=== PATIENT | female | born 1955 | race Caucasian/White ===

== ENCOUNTER 2021-05-09 01:48 | Inpatient (IN) | payer BC ==
[2021-05-09] MEDS ORDERED: Acetaminophen 325 MG Tab PO ONE ×2 (02:20→05:24)
--- NOTE | 2021-05-09 02:20 | EDM.PDOC ---
ED HPI GENERAL MEDICAL PROBLEM - General Chief Complaint: Abdominal Pain Stated Complaint: STOMACH PAIN Time Seen by Provider: 05/09/21 02:00 Source of Information: Reports: Patient History Limitations: Reports: No Limitations - History of Present Illness INITIAL COMMENTS - FREE TEXT/NARRATIVE: Patient is a 65-year-old female with a history of polycystic kidney disease presents today for left lower quadrant pain. Patient says the pain started about 2 hours ago and woke up out of sleep is been constant in nature nonradiating not made worse or better with anything. She denies any associated symptoms of diarrhea urinary in frequency nausea vomiting. So the feeling is achy feeling. Abdomen Pain Score (Numeric/FACES): 9 - Related Data Allergies Allergy/AdvReac Type Severity Reaction Status Date / Time hydrocodone Allergy Vomiting Verified 05/09/21 02:07 ibuprofen [From Advil] Allergy Other Verified 05/09/21 02:07 Home Meds: Home Meds Albuterol Sulfate [Albuterol Sulfate HFA] 8.5 gm INH ASDIRECTED PRN 05/09/21 [History] Fluticasone Propionate [Flovent HFA 110 MCG] 1 inh INH DAILY 05/09/21 [History] Losartan [Cozaar] 25 mg PO DAILY 05/09/21 [History] Montelukast [Singulair] 10 mg PO DAILY 05/09/21 [History] Past Medical History HEENT History: Reports: None Cardiovascular History: Reports: None Respiratory History: Reports: Asthma Gastrointestinal History: Reports: PUD Other Gastrointestinal History: diverticulitis Genitourinary History: Reports: Other (See Below) Other Genitourinary History: polycystic kidney and liver ASSIST[employer] DIRECTOR History: Reports: None Musculoskeletal History: Reports: None Neurological History: Reports: None Psychiatric History: Reports: None Endocrine/Metabolic History: Reports: None Insulin Pump Model and Blind Hooker: N/A Hematologic History: Reports: None Immunologic History: Reports: None Oncologic (Cancer) History: Reports: None Dermatologic History: Reports: None - Infectious Disease History Infectious Disease History: Reports: None - Past Surgical History Head Surgeries/Procedures: Reports: None Female Surgical History: Reports: Tubal Ligation Musculoskeletal Surgical History: Reports: Other (See Below) Other Musculoskeletal Surgeries/Procedures:: carpal tunnel. R hand trigger thumb Social & Family History - Caffeine Use Caffeine Use: Reports: None - Recreational Drug Use Recreational Drug Use: No ED ROS GENERAL - Review of Systems Review Of Systems: See Below Constitutional: Reports: No Symptoms HEENT: Reports: No Symptoms Respiratory: Reports: No Symptoms Cardiovascular: Reports: No Symptoms Endocrine: Reports: No Symptoms GI/Abdominal: Reports: Abdominal Pain : Reports: No Symptoms Musculoskeletal: Reports: No Symptoms Skin: Reports: No Symptoms Neurological: Reports: No Symptoms Psychiatric: Reports: No Symptoms Hematologic/Lymphatic: Reports: No Symptoms Immunologic: Reports: No Symptoms ED EXAM, GI/ABD - Physical Exam Exam: See Below Exam Limited By: No Limitations General Appearance: Alert, WD/WN, No Apparent Distress Nose: Normal Inspection Throat/Mouth: Normal Inspection Head: Atraumatic, Normocephalic Respiratory/Chest: No Respiratory Distress, Lungs Clear, Normal Breath Sounds Cardiovascular: Normal Peripheral Pulses, Regular Rate, Rhythm GI/Abdominal Exam: Normal Bowel Sounds, Soft, Tender (Left lower quadrant) Back Exam: Normal Inspection Extremities: Normal Inspection, Normal Range of Motion Neurological: Alert, Oriented, CN II-XII Intact, Normal Cognition, Normal Gait #1 Interpretation EKG Date: 05/09/21 Time: 05:43 Rhythm: Other (sinus tachy) Rate (Beats/Min): 101 ST-T: Normal Course - Vital Signs Last Recorded V/S: Last Vital Signs Temp 101.5 F H 05/09/21 05:05 Pulse 97 05/09/21 05:05 Resp 18 05/09/21 05:05 BP 95/51 L 05/09/21 05:05 Pulse Ox 96 05/09/21 05:05 - Orders/Labs/Meds Orders: Active Orders 24 hr Category Date Time Status Patient Status [ADT] Routine ADT 05/09/21 05:07 Active EKG 12 Lead [EKG Documentation Completion] [RC] STAT Care 05/09/21 05:34 Active Chest 1V Frontal [CR] Stat Exams 05/09/21 05:29 Taken CORONAVIRUS COVID-19 ED [MOLEC] Stat Lab 05/09/21 05:05 Ordered CULTURE BLOOD [BC] Stat Lab 05/09/21 05:21 Received CULTURE BLOOD [BC] Stat Lab 05/09/21 05:30 Received LACTIC ACID SEPSIS W/ REFLEX [LACTATE SEPSIS W/ REFLEX] Lab 05/09/21 05:21 Received [CHEM] Stat Sodium Chloride 0.9% [Normal Saline] 1,000 ml Med 05/09/21 05:17 Active IV NOW Blood Culture x2 Reflex Set [OM.PC] Stat Oth 05/09/21 05:04 Ordered Medication Orders Sodium Chloride (Normal Saline) 1,000 mls @ 999 mls/hr IV NOW STA Stop: 05/09/21 06:17 Last Admin: 05/09/21 05:28 Dose: 999 mls/hr Documented by: ELIAZAR Labs: Laboratory Tests 05/09/21 05/09/21 05/09/21 Range/Units 02:00 02:00 02:50 WBC 8.10 (4.0-11.0) K/uL RBC 3.95 L (4.30-5.90) M/uL Hgb 12.8 (12.0-16.0) g/dL Hct 36.7 (36.0-46.0) % MCV 92.9 (80.0-98.0) fL MCH 32.4 H (27.0-32.0) pg MCHC 34.9 (31.0-37.0) g/dL RDW Std Deviation 44.2 (28.0-62.0) fl RDW Coeff of Lucio 13 (11.0-15.0) % Plt Count 231 (150-400) K/uL MPV 9.90 (7.40-12.00) fL Neut % (Auto) 70.7 (48.0-80.0) % Lymph % (Auto) 19.4 (16.0-40.0) % [place] % (Auto) 8.0 (0.0-15.0) % Eos % (Auto) 1.5 (0.0-7.0) % Baso % (Auto) 0.4 (0.0-1.5) % Neut # (Auto) 5.7 (1.4-5.7) K/uL Lymph # (Auto) 1.6 (0.6-2.4) K/uL [place] # (Auto) 0.7 (0.0-0.8) K/uL Eos # (Auto) 0.1 (0.0-0.7) K/uL Baso # (Auto) 0.0 (0.0-0.1) K/uL Nucleated RBC % 0.0 /100WBC Nucleated RBCs # 0 K/uL Sodium 142 (136-145) mmol/L Potassium 4.0 (3.5-5.1) mmol/L Chloride 104 (98-107) mmol/L Carbon Dioxide 25.5 (21.0-32.0) mmol/L BUN 17 (7.0-18.0) mg/dL Creatinine 1.2 H (0.6-1.0) mg/dL Est Cr Clr Drug Dosing 36.21 mL/min Estimated GFR (MDRD) 45.4 ml/min Glucose 99 (74-106) mg/dL Lactic Acid (0.4-2.0) mmol/L Calcium 8.2 L (8.5-10.1) mg/dL Phosphorus 3.7 (2.6-4.7) mg/dL Magnesium 1.9 (1.8-2.4) mg/dL Total Bilirubin 0.4 (0.2-1.0) mg/dL AST 22 (15-37) IU/L ALT 25 (14-63) IU/L Alkaline Phosphatase 97 (46-116) U/L Total Protein 6.8 (6.4-8.2) g/dL Albumin 3.7 (3.4-5.0) g/dL Globulin 3.1 (2.6-4.0) g/dL Albumin/Globulin Ratio 1.2 (0.9-1.6) Lipase 105 (73-393) U/L Urine Color YELLOW Urine Appearance CLEAR Urine pH 6.5 (5.0-8.0) Ur Specific [place] <= 1.005 (1.001-1.035) Urine Protein NEGATIVE (NEGATIVE) mg/dL Urine Glucose (UA) NEGATIVE (NEGATIVE) mg/dL Urine Ketones NEGATIVE (NEGATIVE) mg/dL Urine Occult Blood NEGATIVE (NEGATIVE) Urine Nitrite NEGATIVE (NEGATIVE) Urine Bilirubin NEGATIVE (NEGATIVE) Urine Urobilinogen 0.2 (<2.0) EU/dL Ur Leukocyte Esterase NEGATIVE (NEGATIVE) 05/09/21 Range/Units 03:23 WBC (4.0-11.0) K/uL RBC (4.30-5.90) M/uL Hgb (12.0-16.0) g/dL Hct (36.0-46.0) % MCV (80.0-98.0) fL MCH (27.0-32.0) pg MCHC (31.0-37.0) g/dL RDW Std Deviation (28.0-62.0) fl RDW Coeff of Lucio (11.0-15.0) % Plt Count (150-400) K/uL MPV (7.40-12.00) fL Neut % (Auto) (48.0-80.0) % Lymph % (Auto) (16.0-40.0) % [place] % (Auto) (0.0-15.0) % Eos % (Auto) (0.0-7.0) % Baso % (Auto) (0.0-1.5) % Neut # (Auto) (1.4-5.7) K/uL Lymph # (Auto) (0.6-2.4) K/uL [place] # (Auto) (0.0-0.8) K/uL Eos # (Auto) (0.0-0.7) K/uL Baso # (Auto) (0.0-0.1) K/uL Nucleated RBC % /100WBC Nucleated RBCs # K/uL Sodium (136-145) mmol/L Potassium (3.5-5.1) mmol/L Chloride (98-107) mmol/L Carbon Dioxide (21.0-32.0) mmol/L BUN (7.0-18.0) mg/dL Creatinine (0.6-1.0) mg/dL Est Cr Clr Drug Dosing mL/min Estimated GFR (MDRD) ml/min Glucose (74-106) mg/dL Lactic Acid 1.3 (0.4-2.0) mmol/L Calcium (8.5-10.1) mg/dL Phosphorus (2.6-4.7) mg/dL Magnesium (1.8-2.4) mg/dL Total Bilirubin (0.2-1.0) mg/dL AST (15-37) IU/L ALT (14-63) IU/L Alkaline Phosphatase (46-116) U/L Total Protein (6.4-8.2) g/dL Albumin (3.4-5.0) g/dL Globulin (2.6-4.0) g/dL Albumin/Globulin Ratio (0.9-1.6) Lipase (73-393) U/L Urine Color Urine Appearance Urine pH (5.0-8.0) Ur Specific [place] (1.001-1.035) Urine Protein (NEGATIVE) mg/dL Urine Glucose (UA) (NEGATIVE) mg/dL Urine Ketones (NEGATIVE) mg/dL Urine Occult Blood (NEGATIVE) Urine Nitrite (NEGATIVE) Urine Bilirubin (NEGATIVE) Urine Urobilinogen (<2.0) EU/dL Ur Leukocyte Esterase (NEGATIVE) Meds: Medications Generic Name Dose Route Start Last Admin Trade Name Freq PRN Reason Stop Dose Admin Sodium Chloride 1,000 mls @ 999 mls/hr 05/09/21 05:17 05/09/21 05:28 Normal Saline IV 05/09/21 06:17 999 mls/hr NOW STA Administration Discontinued Medications Generic Name Dose Route Start Last Admin Trade Name Freq PRN Reason Stop Dose Admin Acetaminophen 650 mg 05/09/21 02:20 05/09/21 02:30 Acetaminophen 325 Mg Tab PO 05/09/21 02:21 650 mg NOW ONE Administration Acetaminophen 325 mg 05/09/21 05:20 05/09/21 05:25 Acetaminophen 325 Mg/10.15 Ml Ml PO 05/09/21 05:21 Not Given NOW ONE Acetaminophen 325 mg 05/09/21 05:24 05/09/21 05:30 Acetaminophen 325 Mg Tab PO 05/09/21 05:25 Not Given NOW ONE Sodium Chloride 1,000 mls @ 999 mls/hr 05/09/21 02:51 05/09/21 02:58 Normal Saline IV 05/09/21 03:51 999 mls/hr NOW STA Administration Piperacillin Sod/Tazobactam 50 mls @ 100 mls/hr 05/09/21 04:43 05/09/21 04:59 Sod 3.375 gm/ Sodium Chloride IV 05/09/21 05:12 100 mls/hr ONETIME ONE Administration Iopamidol 80 ml 05/09/21 03:21 05/09/21 03:21 Iopamidol 755 Mg/Ml 500 Ml Multipack Bottle IVPUSH 05/09/21 03:22 80 ml ONETIME STA Administration Ketorolac Tromethamine 30 mg 05/09/21 05:29 05/09/21 05:43 Ketorolac 30 Mg/Ml Sdv IVPUSH 05/09/21 05:30 30 mg ONETIME ONE Administration Ondansetron HCl 4 mg 05/09/21 02:54 05/09/21 02:58 Ondansetron 4 Mg/2 Ml Sdv IVPUSH 05/09/21 02:55 4 mg ONETIME ONE Administration Ondansetron HCl Confirm 05/09/21 02:55 05/09/21 02:58 Ondansetron 4 Mg/2 Ml Sdv Administered 05/09/21 02:56 Not Given Dose 4 mg .ROUTE .[facility] ONE - Re-Assessments/Exams Free Text/Narrative Re-Assessment/Exam: 05/09/21 04:[address] scan shows diverticulitis will start antibiotics likely admit. 05/09/21 05:08 Patient also slightly hypotensive but not tacky we will obtain blood cultures and lactate as well. Departure - Departure Time of Disposition: 04:45 Disposition: Refer to Observation Condition: Good Clinical Impression: Acute diverticulitis - Discharge Information *PRESCRIPTION DRUG MONITORING PROGRAM REVIEWED*: Not Applicable *COPY OF PRESCRIPTION DRUG MONITORING REPORT IN PATIENT UMAIR: Not Applicable Sepsis Event Note (ED) - Evaluation Sepsis Screening Result: No Definite Risk - Focused Exam Vital Signs: Vital Signs Temp Temp Pulse Resp BP Pulse Ox 05/09/21 05:05 101.5 F H 97 18 95/51 L 96 05/09/21 02:55 97.8 F 100/57 L 05/09/21 02:05 97 F 82 18 132/85 97 - My Orders Last 24 Hours: My Active Orders 05/09/21 05:04 Blood Culture x2 Reflex Set [OM.PC] Stat 05/09/21 05:05 CORONAVIRUS COVID-19 ED [MOLEC] Stat 05/09/21 05:07 Patient Status [ADT] Routine 05/09/21 05:17 Sodium Chloride 0.9% [Normal Saline] 1,000 ml IV NOW 05/09/21 05:21 CULTURE BLOOD [BC] Stat LACTIC ACID SEPSIS W/ REFLEX [LACTATE SEPSIS W/ REFLEX] [CHEM] Stat 05/09/21 05:29 Chest 1V Frontal [CR] Stat 05/09/21 05:30 CULTURE BLOOD [BC] Stat 05/09/21 05:34 EKG 12 Lead [EKG Documentation Completion] [RC] STAT - Assessment/Plan Last 24 Hours: My Active Orders 05/09/21 05:04 Blood Culture x2 Reflex Set [OM.PC] Stat 05/09/21 05:05 CORONAVIRUS COVID-19 ED [MOLEC] Stat 05/09/21 05:07 Patient Status [ADT] Routine 05/09/21 05:17 Sodium Chloride 0.9% [Normal Saline] 1,000 ml IV NOW 05/09/21 05:21 CULTURE BLOOD [BC] Stat LACTIC ACID SEPSIS W/ REFLEX [LACTATE SEPSIS W/ REFLEX] [CHEM] Stat 05/09/21 05:29 Chest 1V Frontal [CR] Stat 05/09/21 05:30 CULTURE BLOOD [BC] Stat 05/09/21 05:34 EKG 12 Lead [EKG Documentation Completion] [RC] STAT Plan: Patient is a 65-year-old female presents today for left lower quadrant pain. Patient has some tenderness on exam. Will obtain labs CT scan provide pain control and reassess.
[2021-05-09 02:50] LABS: CARBON DIOXIDE,CO2 25.5 mmol/L (21.0-32.0)
[2021-05-09] MEDS ORDERED: Sodium Chloride 0.9% 1,000 ML IV STA ×2 (02:51→05:17)
[2021-05-09] MEDS ORDERED: Ondansetron 4 MG/2 ML SDV IVPUSH ONE (02:54)
[2021-05-09] MEDS ORDERED: Ondansetron 4 MG/2 ML SDV ONE (02:55)
[2021-05-09] MEDS ORDERED: Iopamidol 755 MG/ML 500 ML Multipack Bottle IVPUSH STA (03:21)
--- NOTE | 2021-05-09 04:41 | CT ---
Indication: Left lower quadrant pain Technique: Contrast enhanced axial CT imaging through the abdomen and pelvis. 80 mL Isovue 370 contrast agent was administered intravenously. Sagittal and coronal reconstructions are provided. Comparison: None Findings: Extensive diverticulosis of the descending and sigmoid colon. Circumferential wall thickening of the proximal sigmoid colon with surrounding edema, consistent with acute diverticulitis. No extraluminal air to suggest perforation. No evidence of pericolonic abscess. Noninflamed appendix. Normal caliber of the small bowel. Small hiatal hernia. Otherwise unremarkable stomach. Innumerable bilateral renal cortical cysts of varying size, largest on the left measuring up to 7.5 cm, consistent with polycystic kidney disease. Multiple cysts also noted in the liver, measuring up to 6 cm in the posterior right hepatic lobe. Unremarkable gallbladder, spleen, pancreas common adrenal glands. Patent portal vein, hepatic veins, IVC, and renal veins. Normal caliber abdominal aorta. No lymphadenopathy appreciated in the abdomen or pelvis. Degenerative disc disease at the lumbosacral junction. Otherwise unremarkable osseous structures. No significant opacity involving the clinical basis. Impression: 1. Acute diverticulitis of the sigmoid colon. No evidence of colonic perforation or pericolonic abscess. 2. Polycystic kidney disease. 3. Small hiatal hernia. Please note that all CT scans at this facility use dose modulation, iterative reconstruction, and/or weight-based dosing when appropriate to reduce radiation dose to as low as reasonably achievable. Dictated by Akua Chambers MD @ 05/09/2021 4:40:01 AM (Electronically Signed)
[2021-05-09] MEDS ORDERED: Piperacillin/Tazobactam 3.375 GM in Sodium Chloride 0.9% 50 ML IV ONE (04:43)
[2021-05-09] MEDS ORDERED: Acetaminophen 325 MG/10.15 ML ML PO ONE (05:20)
[2021-05-09] MEDS ORDERED: Ketorolac 30 MG/ML SDV IVPUSH ONE (05:29)
--- NOTE | 2021-05-09 05:59 | CR ---
INDICATION: Diverticulitis TECHNIQUE: Portable upright AP view of the chest COMPARISON: None FINDINGS: The lungs are clear. There is no sizable pleural effusion or pneumothorax. The cardiomediastinal silhouette is normal. The visualized osseous structures are unremarkable. There is no free air under the diaphragm. IMPRESSION: No acute intrathoracic process. Dictated by Akua Chambers MD @ 05/09/2021 5:58:06 AM (Electronically Signed)
[2021-05-09] MEDS ORDERED: Sodium Chloride 0.9% 1,000 ML IV SCH (07:00)
--- NOTE | 2021-05-09 08:12 | PCM.SN.2 ---
- Free Text/Narrative Note: Patient was signed out to me by Dr. Mcmullen at 7 AM pending admit after Covid swab. I promptly performed a detailed physical examination and my examination was done after ED treatments were initiated by the signout provider. Patient has been under the care of previous provider up until this point. On reevaluation at the time of signout the patient's blood pressure was with a MAP less than 65. My prior colleague had placed a 1 L bolus order we will reevaluate after this bolus as the patient has already received 2 L prior to this. After additional liter the patient's blood pressure did remain low therefore we did repeat labs including CBC, CMP, INR, lactic acid and providing additional 1 L lactated Ringer's bolus to equal 30 cc/kg bolus as the patient is meeting septic shock criteria. At the time of my evaluation the patient skin is warm, dry and capillary refill was less than 2 seconds. Patient has already received antibiotics. We will reevaluate blood pressure after the additional 1 L of lactated Ringer's bolus which equates to 30 cc/kg's to evaluate need for possible central line placement and vasopressor support. Laboratory: Anemia with a hemoglobin of 10.8 hematocrit of 31.3 likely dilution al secondary to fluid administration. White blood cell count did increase from 8.1-10.6 with neutrophilic predominance without any obvious left shift. INR is normal. CMP is unchanged from prior. Lactic acid is 1.6 which is up from prior however not greater than 2. On reevaluation the patient's blood pressure continued to remain above a map of 65. Therefore at this time no vasopressor support is indicated. Patient has received an equivalent of 30 cc/kg bolus. We will continue with current management. The patient was started on maintenance fluids. Post bolus examination reveals skin that is warm and dry and capillary refill less than 2 seconds. DISPOSITION: Patient was admitted to the hospital in stable CONDITION: Serious PROCEDURES: Cardiac monitoring interpretation, pulse oximetry interpretation FINAL IMPRESSION(S)/DIAGNOSES: 1. Acute abdominal pain secondary to diverticulitis 2. Acute sepsis secondary to diverticulitis Critical Care Procedure Note Authorized and performed by: Forrest Persaud M.D. Critical Care Time: 60 minutes Due to a high probability of clinically significant, life threatening deterioration, the patient required my highest level of preparedness to intervene emergently and I personally spent this critical care time directly and personally managing the patient. This critical care time included obtaining a history, examining the patient, pulse oximetry; ordering and review of studies; arranging urgent treatment with development of a management plan; evaluation of a patients reponse to treatment; frequent assessment; and discussions with other providers. This critical care time was performed to assess and manage the high probability of imminent, life threatening deterioration that could result in multiorgan failure. It was exclusive of separate billable procedures and treating other patients. Please see MDM section and rest of the note for further information on patient assessment and treatment. Please see MDM section and rest of the note for further information on patient assessment and treatment. Forrest Perasud M.D. Time Documentation
[2021-05-09] MEDS ORDERED: Lactated Ringers 1,000 ML IV SCH (08:15)
[2021-05-09 09:03] LABS: CARBON DIOXIDE,CO2 21.5 mmol/L (21.0-32.0); POTASSIUM,K 3.5 mmol/L (3.5-5.1)
[2021-05-09] MEDS ORDERED: Acetaminophen 325 MG Tab PO PRN (10:00)
[2021-05-09] MEDS ORDERED: Albuterol/Ipratropium 3.0-0.5 MG/3 ML Neb Soln NEB PRN (10:00)
[2021-05-09] MEDS ORDERED: Hydrocortisone Sodium Succinate 100 MG/2 ML SDV IVPUSH ONE (10:08)
--- NOTE | 2021-05-09 10:14 | PCM.HP.2 ---
H&P History of Present Illness - General Date of Service: 05/09/21 Admit Problem/Dx: Admission Diagnosis/Problem Admission Diagnosis/Problem Diverticulitis - History of Present Illness Initial Comments - Free Text/Narative: The patient is a 65-year-old female, on day one of service, who has a significant past medical history of polycystic kidney disease, asthma, and hypertension, who was admitted to the medical floor for diverticulitis. The patient upon interview today states that for the past 2 months she has had on and off abdominal pain in the left lower quadrant which became worse in the past 24 hours; it currently is 10 out of 10 in intensity, sharp in nature, and radiates to the right lower quadrant. She has not had any diarrhea, melena, bloody stools, vomiting, but does admit to feeling nauseous. The patient is postmenopausal, has allergies to hydrocodone, and social history is nonc ontributory. With respect to her family history, her father also had polycystic kidney disease, and her mother suffers from asthma and hypertension. Upon further interview, she denies chest pain, back pain, or issues with urination. On CBC, her white blood cell count is 10.16, hemoglobin is 10.8, hematocrit is 31.3, and platelet count is 182 On CMP, sodium is 142, potassium is 3.5, chloride is 107, carbon dioxide is 21.5, BUN is 12, creatinine is 1.2 Urinalysis showed no abnormalities, and COVID-19 test was negative Chest x-ray showed no acute intrathoracic abnormalities CT of the abdomen showed acute diverticulitis of the sigmoid colon, no abscesses or perforations, evidence of polycystic kidney disease, and a small hiatal hernia In the emergency department, the patient was given Toradol 30 mg for pain as well as three doses of Tylenol, 325 mg per oral route twice and 650 mg per oral route once, patient was also given three normal saline boluses, two lactated ringer boluses, was given Zofran 4 mg once, had two blood cultures done, and was started on Zosyn 3.375 mg per IV route once. Abdomen Pain Score (Numeric/FACES): 9 - Related Data Allergies/Adverse Reactions: Allergies Allergy/AdvReac Type Severity Reaction Status Date / Time hydrocodone Allergy Vomiting Verified 05/09/21 02:07 ibuprofen [From Advil] Allergy Other Verified 05/09/21 02:07 Home Medications: Home Meds Albuterol Sulfate [Albuterol Sulfate HFA] 8.5 gm INH ASDIRECTED PRN 05/09/21 [History] Fluticasone/Vilanterol [Breo Ellipta 200-25 MCG Inhalation Kit] 1 inh IH DAILY 05/09/21 [History] Losartan [Cozaar] 25 mg PO DAILY 05/09/21 [History] Montelukast [Singulair] 10 mg PO DAILY 05/09/21 [History] Past Medical History HEENT History: Reports: None Cardiovascular History: Reports: None Respiratory History: Reports: Asthma Gastrointestinal History: Reports: PUD Other Gastrointestinal History: Diverticulitis Genitourinary History: Reports: Other (See Below) Other Genitourinary History: polycystic kidney and liver MEDICAL LEADER History: Reports: None Musculoskeletal History: Reports: None Neurological History: Reports: None Psychiatric History: Reports: None Endocrine/Metabolic History: Reports: None Insulin Pump Model and Machine Filler Servicer: N/A Hematologic History: Reports: None Immunologic History: Reports: None Oncologic (Cancer) History: Reports: None Dermatologic History: Reports: None - Infectious Disease History Infectious Disease History: Reports: None - Past Surgical History Head Surgeries/Procedures: Reports: None Female Surgical History: Reports: Tubal Ligation Musculoskeletal Surgical History: Reports: Other (See Below) Other Musculoskeletal Surgeries/Procedures:: carpal tunnel. R hand trigger thumb Social & Family History - Caffeine Use Caffeine Use: Reports: None - Recreational Drug Use Recreational Drug Use: No H&P Review of Systems - Review of Systems: Review Of Systems: See Below General: Reports: Chills, Fatigue. Denies: Fever HEENT: Denies: Headaches Pulmonary: Reports: Shortness of Breath. Denies: Cough Cardiovascular: Denies: Chest Pain, Palpitations, Dyspnea on Exertion Gastrointestinal: Reports: Abdominal Pain. Denies: Bloody Stool, Constipation, Diarrhea Genitourinary: Denies: Dysuria Exam - Exam Exam: See Below - Vital Signs Vital Signs: Last Vital Signs Temp 101.5 F H 05/09/21 05:05 Pulse 98 05/09/21 09:51 Resp 18 05/09/21 09:51 BP 88/53 L 05/09/21 09:51 Pulse Ox 93 L 05/09/21 09:51 Weight: 140 lb - Exam General: Alert, Oriented, Cooperative HEENT: Other (Dry mucous membranes) Neck: No: Lymphadenopathy Lungs: Clear to Auscultation, Normal Respiratory Effort Cardiovascular: Regular Rate, Regular Rhythm GI/Abdominal Exam: Normal Bowel Sounds, Tender - Patient Data Lab Results Last 24 hrs: Laboratory Results - last 24 hr 05/09/21 05/09/21 05/09/21 Range/Units 02:00 02:00 02:50 WBC 8.10 (4.0-11.0) K/uL RBC 3.95 L (4.30-5.90) M/uL Hgb 12.8 (12.0-16.0) g/dL Hct 36.7 (36.0-46.0) % MCV 92.9 (80.0-98.0) fL MCH 32.4 H (27.0-32.0) pg MCHC 34.9 (31.0-37.0) g/dL RDW Std Deviation 44.2 (28.0-62.0) fl RDW Coeff of Lucio 13 (11.0-15.0) % Plt Count 231 (150-400) K/uL MPV 9.90 (7.40-12.00) fL Neut % (Auto) 70.7 (48.0-80.0) % Lymph % (Auto) 19.4 (16.0-40.0) % Citrus % (Auto) 8.0 (0.0-15.0) % Eos % (Auto) 1.5 (0.0-7.0) % Baso % (Auto) 0.4 (0.0-1.5) % Neut # (Auto) 5.7 (1.4-5.7) K/uL Lymph # (Auto) 1.6 (0.6-2.4) K/uL Citrus # (Auto) 0.7 (0.0-0.8) K/uL Eos # (Auto) 0.1 (0.0-0.7) K/uL Baso # (Auto) 0.0 (0.0-0.1) K/uL Nucleated RBC % 0.0 /100WBC Nucleated RBCs # 0 K/uL INR Sodium 142 (136-145) mmol/L Potassium 4.0 (3.5-5.1) mmol/L Chloride 104 (98-107) mmol/L Carbon Dioxide 25.5 (21.0-32.0) mmol/L BUN 17 (7.0-18.0) mg/dL Creatinine 1.2 H (0.6-1.0) mg/dL Est Cr Clr Drug Dosing 36.21 mL/min Estimated GFR (MDRD) 45.4 ml/min Glucose 99 (74-106) mg/dL Lactic Acid (0.4-2.0) mmol/L Calcium 8.2 L (8.5-10.1) mg/dL Phosphorus 3.7 (2.6-4.7) mg/dL Magnesium 1.9 (1.8-2.4) mg/dL Total Bilirubin 0.4 (0.2-1.0) mg/dL AST 22 (15-37) IU/L ALT 25 (14-63) IU/L Alkaline Phosphatase 97 (46-116) U/L Total Protein 6.8 (6.4-8.2) g/dL Albumin 3.7 (3.4-5.0) g/dL Globulin 3.1 (2.6-4.0) g/dL Albumin/Globulin Ratio 1.2 (0.9-1.6) Lipase 105 (73-393) U/L Urine Color YELLOW Urine Appearance CLEAR Urine pH 6.5 (5.0-8.0) Ur Specific [place] <= 1.005 (1.001-1.035) Urine Protein NEGATIVE (NEGATIVE) mg/dL Urine Glucose (UA) NEGATIVE (NEGATIVE) mg/dL Urine Ketones NEGATIVE (NEGATIVE) mg/dL Urine Occult Blood NEGATIVE (NEGATIVE) Urine Nitrite NEGATIVE (NEGATIVE) Urine Bilirubin NEGATIVE (NEGATIVE) Urine Urobilinogen 0.2 (<2.0) EU/dL Ur Leukocyte Esterase NEGATIVE (NEGATIVE) SARS-CoV-2 RNA (ED) (NEGATIVE) 05/09/21 05/09/21 05/09/21 Range/Units 03:23 04:55 05:21 WBC (4.0-11.0) K/uL RBC (4.30-5.90) M/uL Hgb (12.0-16.0) g/dL Hct (36.0-46.0) % MCV (80.0-98.0) fL MCH (27.0-32.0) pg MCHC (31.0-37.0) g/dL RDW Std Deviation (28.0-62.0) fl RDW Coeff of Lucio (11.0-15.0) % Plt Count (150-400) K/uL MPV (7.40-12.00) fL Neut % (Auto) (48.0-80.0) % Lymph % (Auto) (16.0-40.0) % Citrus % (Auto) (0.0-15.0) % Eos % (Auto) (0.0-7.0) % Baso % (Auto) (0.0-1.5) % Neut # (Auto) (1.4-5.7) K/uL Lymph # (Auto) (0.6-2.4) K/uL Citrus # (Auto) (0.0-0.8) K/uL Eos # (Auto) (0.0-0.7) K/uL Baso # (Auto) (0.0-0.1) K/uL Nucleated RBC % /100WBC Nucleated RBCs # K/uL INR Sodium (136-145) mmol/L Potassium (3.5-5.1) mmol/L Chloride (98-107) mmol/L Carbon Dioxide (21.0-32.0) mmol/L BUN (7.0-18.0) mg/dL Creatinine (0.6-1.0) mg/dL Est Cr Clr Drug Dosing mL/min Estimated GFR (MDRD) ml/min Glucose (74-106) mg/dL Lactic Acid 1.3 0.8 (0.4-2.0) mmol/L Calcium (8.5-10.1) mg/dL Phosphorus (2.6-4.7) mg/dL Magnesium (1.8-2.4) mg/dL Total Bilirubin (0.2-1.0) mg/dL AST (15-37) IU/L ALT (14-63) IU/L Alkaline Phosphatase (46-116) U/L Total Protein (6.4-8.2) g/dL Albumin (3.4-5.0) g/dL Globulin (2.6-4.0) g/dL Albumin/Globulin Ratio (0.9-1.6) Lipase (73-393) U/L Urine Color Urine Appearance Urine pH (5.0-8.0) Ur Specific [place] (1.001-1.035) Urine Protein (NEGATIVE) mg/dL Urine Glucose (UA) (NEGATIVE) mg/dL Urine Ketones (NEGATIVE) mg/dL Urine Occult Blood (NEGATIVE) Urine Nitrite (NEGATIVE) Urine Bilirubin (NEGATIVE) Urine Urobilinogen (<2.0) EU/dL Ur Leukocyte Esterase (NEGATIVE) SARS-CoV-2 RNA (ED) NEGATIVE (NEGATIVE) 05/09/21 05/09/21 05/09/21 Range/Units 08:20 08:20 08:20 WBC 10.16 (4.0-11.0) K/uL RBC 3.34 L (4.30-5.90) M/uL Hgb 10.8 L (12.0-16.0) g/dL Hct 31.3 L (36.0-46.0) % MCV 93.7 (80.0-98.0) fL MCH 32.3 H (27.0-32.0) pg MCHC 34.5 (31.0-37.0) g/dL RDW Std Deviation 45.3 (28.0-62.0) fl RDW Coeff of Lucio 13 (11.0-15.0) % Plt Count 182 (150-400) K/uL MPV 9.80 (7.40-12.00) fL Neut % (Auto) 89.6 H (48.0-80.0) % Lymph % (Auto) 4.3 L (16.0-40.0) % Citrus % (Auto) 6.0 (0.0-15.0) % Eos % (Auto) 0.0 (0.0-7.0) % Baso % (Auto) 0.1 (0.0-1.5) % Neut # (Auto) 9.1 H (1.4-5.7) K/uL Lymph # (Auto) 0.4 L (0.6-2.4) K/uL Citrus # (Auto) 0.6 (0.0-0.8) K/uL Eos # (Auto) 0.0 (0.0-0.7) K/uL Baso # (Auto) 0.0 (0.0-0.1) K/uL Nucleated RBC % 0.0 /100WBC Nucleated RBCs # 0 K/uL INR 1.06 Sodium (136-145) mmol/L Potassium (3.5-5.1) mmol/L Chloride (98-107) mmol/L Carbon Dioxide (21.0-32.0) mmol/L BUN (7.0-18.0) mg/dL Creatinine (0.6-1.0) mg/dL Est Cr Clr Drug Dosing mL/min Estimated GFR (MDRD) ml/min Glucose (74-106) mg/dL Lactic Acid 1.6 (0.4-2.0) mmol/L Calcium (8.5-10.1) mg/dL Phosphorus (2.6-4.7) mg/dL Magnesium (1.8-2.4) mg/dL Total Bilirubin (0.2-1.0) mg/dL AST (15-37) IU/L ALT (14-63) IU/L Alkaline Phosphatase (46-116) U/L Total Protein (6.4-8.2) g/dL Albumin (3.4-5.0) g/dL Globulin (2.6-4.0) g/dL Albumin/Globulin Ratio (0.9-1.6) Lipase (73-393) U/L Urine Color Urine Appearance Urine pH (5.0-8.0) Ur Specific [place] (1.001-1.035) Urine Protein (NEGATIVE) mg/dL Urine Glucose (UA) (NEGATIVE) mg/dL Urine Ketones (NEGATIVE) mg/dL Urine Occult Blood (NEGATIVE) Urine Nitrite (NEGATIVE) Urine Bilirubin (NEGATIVE) Urine Urobilinogen (<2.0) EU/dL Ur Leukocyte Esterase (NEGATIVE) SARS-CoV-2 RNA (ED) (NEGATIVE) 05/09/21 Range/Units 08:20 WBC (4.0-11.0) K/uL RBC (4.30-5.90) M/uL Hgb (12.0-16.0) g/dL Hct (36.0-46.0) % MCV (80.0-98.0) fL MCH (27.0-32.0) pg MCHC (31.0-37.0) g/dL RDW Std Deviation (28.0-62.0) fl RDW Coeff of Lucio (11.0-15.0) % Plt Count (150-400) K/uL MPV (7.40-12.00) fL Neut % (Auto) (48.0-80.0) % Lymph % (Auto) (16.0-40.0) % Citrus % (Auto) (0.0-15.0) % Eos % (Auto) (0.0-7.0) % Baso % (Auto) (0.0-1.5) % Neut # (Auto) (1.4-5.7) K/uL Lymph # (Auto) (0.6-2.4) K/uL Citrus # (Auto) (0.0-0.8) K/uL Eos # (Auto) (0.0-0.7) K/uL Baso # (Auto) (0.0-0.1) K/uL Nucleated RBC % /100WBC Nucleated RBCs # K/uL INR Sodium 142 (136-145) mmol/L Potassium 3.5 (3.5-5.1) mmol/L Chloride 107 (98-107) mmol/L Carbon Dioxide 21.5 (21.0-32.0) mmol/L BUN 12 (7.0-18.0) mg/dL Creatinine 1.2 H (0.6-1.0) mg/dL Est Cr Clr Drug Dosing 36.21 mL/min Estimated GFR (MDRD) 45.4 ml/min Glucose 98 (74-106) mg/dL Lactic Acid (0.4-2.0) mmol/L Calcium 6.8 L (8.5-10.1) mg/dL Phosphorus (2.6-4.7) mg/dL Magnesium (1.8-2.4) mg/dL Total Bilirubin 0.6 (0.2-1.0) mg/dL AST 23 (15-37) IU/L ALT 24 (14-63) IU/L Alkaline Phosphatase 74 (46-116) U/L Total Protein 5.3 L (6.4-8.2) g/dL Albumin 2.9 L (3.4-5.0) g/dL Globulin 2.4 L (2.6-4.0) g/dL Albumin/Globulin Ratio 1.2 (0.9-1.6) Lipase (73-393) U/L Urine Color Urine Appearance Urine pH (5.0-8.0) Ur Specific [place] (1.001-1.035) Urine Protein (NEGATIVE) mg/dL Urine Glucose (UA) (NEGATIVE) mg/dL Urine Ketones (NEGATIVE) mg/dL Urine Occult Blood (NEGATIVE) Urine Nitrite (NEGATIVE) Urine Bilirubin (NEGATIVE) Urine Urobilinogen (<2.0) EU/dL Ur Leukocyte Esterase (NEGATIVE) SARS-CoV-2 RNA (ED) (NEGATIVE) Result Diagrams: 05/09/21 08:20 05/09/21 08:20 Sepsis Event Note - Evaluation Sepsis Screening Result: No Definite Risk - Focused Exam Vital Signs: Vital Signs Temp Temp Pulse Resp BP BP Pulse Ox 05/09/21 09:51 98 18 88/53 L 93 L 05/09/21 09:16 98 18 94/57 L 94 L 05/09/21 08:49 95 17 95/59 L 95 05/09/21 08:06 96 17 91/49 L 96 05/09/21 08:01 18 91/52 L 05/09/21 07:48 98 16 81/56 L 96 05/09/21 07:17 103 H 18 84/48 L 96 05/09/21 06:30 102 H 18 101/52 L 95 05/09/21 05:05 101.5 F H 97 18 95/51 L 96 05/09/21 02:55 97.8 F 100/57 L 05/09/21 02:05 97 F 82 18 132/85 97 - Problem List (1) HTN (hypertension) SNOMED Code(s): 82271408 ICD Code: I10 - ESSENTIAL (PRIMARY) HYPERTENSION Status: Acute Current Vi sit: Yes (2) Asthma SNOMED Code(s): 802729403 ICD Code: J45.909 - UNSPECIFIED ASTHMA, UNCOMPLICATED Status: Acute Current Visit: Yes (3) PKD (polycystic kidney disease) SNOMED Code(s): 552621450 ICD Code: Q61.3 - POLYCYSTIC KIDNEY, UNSPECIFIED Status: Acute Current Visit: Yes (4) Acute diverticulitis SNOMED Code(s): 909217664 ICD Code: K57.92 - DVTRCLI OF INTEST, PART UNSP, W/O PERF OR ABSCESS W/O BLEED Status: Acute Current Visit: Yes Problem List Initiated/Reviewed/Updated: Yes Orders Last 24hrs: Active Orders 24 hr Category Date Time Status Patient Status [ADT] Routine ADT 05/09/21 05:07 Active RT Aerosol Therapy [RC] ASDIRECTED Care 05/09/21 10:04 Active Clear Liquid Diet [DIET] Diet 05/09/21 Lunch Active CBC WITH AUTO DIFF [HEME] AM Lab 05/10/21 05:11 Ordered CBC WITH AUTO DIFF [HEME] AM Lab 05/11/21 05:11 Ordered CBC WITH AUTO DIFF [HEME] AM Lab 05/12/21 05:11 Ordered CBC WITH AUTO DIFF [HEME] AM Lab 05/13/21 05:11 Ordered CMP [COMPREHENSIVE METABOLIC PN,CMP] [CHEM] AM Lab 05/10/21 05:11 Ordered CMP [COMPREHENSIVE METABOLIC PN,CMP] [CHEM] AM Lab 05/11/21 05:11 Ordered CMP [COMPREHENSIVE METABOLIC PN,CMP] [CHEM] AM Lab 05/12/21 05:11 Ordered CMP [COMPREHENSIVE METABOLIC PN,CMP] [CHEM] AM Lab 05/13/21 05:11 Ordered CULTURE BLOOD [BC] Stat Lab 05/09/21 05:21 Received CULTURE BLOOD [BC] Stat Lab 05/09/21 05:30 Received PTT,PARTIAL THROMBOPLSTIN TIME [COAG] Q6H Lab 05/09/21 10:00 Ordered PTT,PARTIAL THROMBOPLSTIN TIME [COAG] Q6H Lab 05/09/21 16:00 Ordered PTT,PARTIAL THROMBOPLSTIN TIME [COAG] Q6H Lab 05/09/21 22:00 Ordered PTT,PARTIAL THROMBOPLSTIN TIME [COAG] Q6H Lab 05/10/21 04:00 Ordered PTT,PARTIAL THROMBOPLSTIN TIME [COAG] Q6H Lab 05/10/21 10:00 Ordered PTT,PARTIAL THROMBOPLSTIN TIME [COAG] Q6H Lab 05/10/21 16:00 Ordered PTT,PARTIAL THROMBOPLSTIN TIME [COAG] Q6H Lab 05/10/21 22:00 Ordered PTT,PARTIAL THROMBOPLSTIN TIME [COAG] Stat Lab 05/09/21 09:59 Ordered Acetaminophen [TylenoL] Med 05/09/21 10:00 Active 650 mg PO Q6H PRN Albuterol/Ipratropium [DuoNeb 3.0-0.5 MG/3 ML] Med 05/09/21 10:03 Ordered 3 ml NEB Q4HRRT PRN Heparin Sodium Med 05/09/21 10:00 Active 5,000 units SUBCUT Q12H Lactated Ringers [Ringers, Lactated] 1,000 ml Med 05/09/21 08:15 Active IV ASDIRECTED Lactated Ringers [Ringers, Lactated] 1,000 ml Med 05/09/21 08:15 Active IV ASDIRECTED Losartan Med 05/09/21 10:15 Ordered 25 mg PO DAILY Ondansetron [Zofran] Med 05/09/21 10:00 Active 4 mg IVPUSH Q4H PRN Pantoprazole [ProTONIX] Med 05/09/21 10:00 Active 40 mg PO DAILY Piperacillin/Tazobactam [Piperacil-Tazobact] 3.375 gm Med 05/09/21 12:00 Active Sodium Chloride 0.9% [Normal Saline] 50 ml IV Q6H Sodium Chloride 0.9% [Normal Saline] 1,000 ml Med 05/09/21 07:00 Active IV ASDIRECTED Blood Culture x2 Reflex Set [OM.PC] Stat Oth 05/09/21 05:04 Ordered Code Status [Resuscitation Status] Routine Resus Stat 05/09/21 10:05 Ordered Medication Orders Acetaminophen (Acetaminophen 325 Mg Tab) 650 mg PO Q6H PRN PRN Reason: Pain Albuterol/Ipratropium (Albuterol/Ipratropium 3.0-0.5 Mg/3 Ml Neb Soln) 3 ml NEB Q4HRRT PRN PRN Reason: Shortness of Breath Heparin Sodium (Porcine) (Heparin Sodium 5,000 Units/Ml Vial) 5,000 units SUBCUT Q12H MARIAJOSE Sodium Chloride (Normal Saline) 1,000 mls @ 150 mls/hr IV ASDIRECTED MARIAJOSE Last Infusion: 05/09/21 07:01 Dose: 999 mls/hr Documented by: Admin: 05/09/21 07:01 Dose: 150 mls/hr Documented by: ELIAZAR Lactated Ringer's (Ringers, Lactated) 1,000 mls @ 999 mls/hr IV ASDIRECTED MARIAJOSE Last Admin: 05/09/21 08:28 Dose: 999 mls/hr Documented by: [email or web address] Lactated Ringer's (Ringers, Lactated) 1,000 mls @ 125 mls/hr IV ASDIRECTED MARIAJOSE Piperacillin Sod/Tazobactam (Sod 3.375 gm/ Sodium Chloride) 50 mls @ 100 mls/hr IV Q6H [facility] Non-Formulary Medication (Losartan) 25 mg PO DAILY [facility] Ondansetron HCl (Ondansetron 4 Mg/2 Ml Sdv) 4 mg IVPUSH Q4H PRN PRN Reason: Nausea Pantoprazole Sodium (Pantoprazole 40 Mg Tab.Cr) 40 mg PO DAILY [facility] Assessment/Plan Comment:: Admit the patient to the medical floor, full code, vitals per unit routine, activity up ad david., pantoprazole 40 mg per oral route for GI prophylaxis, heparin 5000 every 12 hours for DVT prophylaxis, clear liquid diet 1. Diverticulitis of the sigmoid colon -Patient was started on Zofran 3.375 g in the ED once, we will continue with this dosage every 6 hours starting at 12 noon -For pain associated with this condition, the patient has Tylenol 650 mg per oral route in place as needed -Continue to monitor patient white blood cell status through daily CBC's -Zofran is on board for any nausea 2. ELENA most likely secondary to polycystic kidney disease -Patient's creatinine is increased, she received five 1 L boluses of liquids altogether, two LR and three NS -We will continue to monitor kidney function through daily CMP's 3. Asthma -Duo nebs are on board for shortness of breath 4. Hypertension -Losartan is on board for high blood pressure
[2021-05-09] MEDS ORDERED: Losartan 50 MG Tab PO SCH (10:15)
[2021-05-09] MEDS: Lactated Ringers 1,000 ML IV SCH ×2 (10:28→18:32)
[2021-05-09] MEDS ORDERED: Morphine 4 MG/ML Syringe IVPUSH ONE (10:53)
[2021-05-09] MEDS: Pantoprazole 40 MG Tab.CR PO SCH (11:10)
[2021-05-09] MEDS: Heparin Sodium 5,000 Units/ML Vial SUBCUT SCH ×2 (11:10→22:04)
[2021-05-09] MEDS: Ondansetron 4 MG/2 ML SDV IVPUSH PRN ×2 (11:23→22:13)
--- NOTE | 2021-05-09 11:50 | PCM.SN.2 ---
- Free Text/Narrative Note: As the patient was being prepped for transport to the floor the patient's blood pressure dropped additionally again. At this time given the patient has received the equivalent of 30 cc/kg bolus I did have a discussion with the patient about placement of a central line to initiate vasopressor support. Written consent was obtained and placed into the chart. Constitutional: Blood pressure was 92/48, heart rate 101, respiratory rate 18 with an oxygen saturation of 98% on room air General: Village woman who appears to be in a moderate amount of pain Psychiatric: [Appropriate mood and affect.] Eyes: [No scleral icterus or conjunctival erythema] ENMT: [Moist mucous membranes. No pharyngeal erythema] Cardiovascular: Tachycardic but regular [No gallops, murmurs, or rubs.] Bilateral upper extremity pulses symmetric and intact. No peripheral edema. No JVD. Capillary refill less than 2 seconds Respiratory: [Lungs clear to auscultation bilaterally.][No wheezes, rales, or rhonchi.] Gastrointestinal: Soft, tenderness to palpation in the left lower quadrant. Negative Mercado's and McBurney's. No rebound or guarding. No peritoneal signs. [Normoactive bowel sounds] Genitourinary: [No suprapubic tenderness] Musculoskeletal: [Normal range of motion.] Skin: [No lesions or abrasions.] Warm, pink skin Neurological: [Alert, GCS 15] Central Line Procedure The risks and benefits of the procedure were explained. Consent was obtained and placed in chart. The indication for central line placement was vasopressor support. The patient was monitored during the entire procedure. Time out was performed. The patient's left neck was prepped and draped in a sterile fashion. Lidocaine was used to anesthetize the area. A needle was entered into the left internal jugular vein [under ultrasound guidance] with return of non-pulsatile flow. Guidewire was placed and triple lumen catheter was placed via Seldinger technique. Guidewire was removed. All 3 lines easily withdrew blood and were flushed with sterile saline. A Biopatch was placed and the line was secured. Patient tolerated procedure well. No complications. The radiological images were viewed by myself along with reading the report from the radiologist. Post central line placement chest x-ray reveals appropriate placement of central line. After placement we did put the place patient on Levophed to maintain a MAP greater than 65. At this time we do not have any available ICU beds at our institution. We will provide the patient with 100 of hydrocortisone for possibility of adrenal insufficiency given sepsis. Therefore I did contact [facility] in [place] there was no available beds. Given the Covid pandemic I did contact the transfer center for [place] and there are no available beds in [place] however they will attempt to contact to see if there is any available beds that we will be opening today. We will continue to attempt to find placement for this patient. She was made aware of this plan. There were no beds available at [facility] in [place], [facility], [facility] in [place]. We did speak with [facility] who would speak with her surgeon to see if they were available to admit the patient and to see if they had beds. While awaiting for a call back from [facility] we were informed by our staff that we did have an open ICU bed that became available here at [facility]. Therefore the patient will be admitted to our hospital. This was discussed with the patient. On reevaluation the patient's map continue to remain stable. DISPOSITION: Patient was admitted to the hospital in stable CONDITION: Critical PROCEDURES: Left internal jugular central venous catheter placement FINAL IMPRESSION(S)/DIAGNOSES: 1. Acute abdominal pain secondary to diverticulitis 2. Acute septic shock secondary to #1 Critical Care Procedure Note Authorized and performed by: Forrest Persaud M.D. Critical Care Time: 74 minutes Due to a high probability of clinically significant, life threatening deterioration, the patient required my highest level of preparedness to intervene emergently and I personally spent this critical care time directly and personally managing the patient. This critical care time included obtaining a history, examining the patient, pulse oximetry; ordering and review of studies; arranging urgent treatment with development of a management plan; evaluation of a patients reponse to treatment; frequent assessment; and discussions with other providers. This critical care time was performed to assess and manage the high probability of imminent, life threatening deterioration that could result in multiorgan failure. It was exclusive of separate billable procedures and treating other patients. Please see MDM section and rest of the note for further information on patient assessment and treatment. Please see MDM section and rest of the note for further information on patient assessment and treatment. Time Documentation
--- NOTE | 2021-05-09 12:04 | CR ---
INDICATION: Post central line placement. TECHNIQUE: Upright portable AP image of the chest. COMPARISON: Portable chest x-ray from 12/23 8 a.m. today. FINDINGS: Interval placement of left jugular central line with tip in the SVC. Otherwise unremarkable and unchanged. IMPRESSION: Interval placement of central line in the SVC. Dictated by Robinson Mata MD @ 05/09/2021 12:03:05 PM (Electronically Signed)
[2021-05-09] MEDS: Piperacillin/Tazobactam 3.375 GM in Sodium Chloride 0.9% 50 ML IV SCH ×3 (13:45→23:07)
[2021-05-09] MEDS ORDERED: Morphine 2 MG/ML SYRINGE IVPUSH ONE (14:50)
[2021-05-09] MEDS: Morphine 2 MG/ML SYRINGE IVPUSH PRN ×3 (18:26→22:40)
--- NOTE | 2021-05-09 19:00 | PN ---
THC Physician - Brief Progress KhycBUTKOVYKM24/14/2021 18:59[facility] Frandy Haas, [place] - MWN (BETTEN) - MWN ICUAL[facility]ENTERBREANN CYNTHIA JAISON Jones.Date of Service 05/09/2021 18:59HPI/Mari nts of Note eICU Admission [id number] admitted for septic shock attributed to diverticulitis. History ob tained from review of EMR.Camera exam: Laying in bed. Vitals monitor reviewed. eICU Recommendations:N orepinephrine is a reasonable choice for vasopressor supportContinue antibiotics, blood cultures orde red by primary serviceIV fluids to target euvolemia, lactate normalGiven acute worsening, consider re peat CT abd/pelvis. Defer this to bedside abdominal examinationSurgical consultation if availableTran sfer to higher level of care if bed availableeICU will continue to follow and assist as desired.DVT a nd GI prophylaxis as appropriate.Thank you for allowing us to participate in the care of this patient .Unless otherwise specified, defer implementation of above recommendations to discretion of bedside arlen healy. Please do not hesitate to contact the eICU service for questions, clarification, or assistan ce with implementation.The above note transcribed with the assistance of dictation software. Please e xcuse any errors.Interventions Major-Sepsis - evaluation and management, Shock - evaluation and manag ement
[2021-05-09] MEDS: Acetaminophen 1,000 MG in Premix Bag 1 BAG IV PRN (22:13)
--- NOTE | 2021-05-09 23:12 | CONS ---
DATE OF CONSULTATION: 05/09/2021 DATE OF : 1955 PRIMARY CARE PHYSICIAN: None PCP HISTORY OF PRESENT ILLNESS: Patient is a pleasant 65-year-old female who says she woke up this morning with increased left lower abdominal pain. She said it was 10/10. She came to the ER for evaluation. She had a CT scan that did show some extensive diverticulosis in descending and sigmoid colon with circumferential wall thickening of the proximal sigmoid colon with some surrounding edema. No signs of perforation or abscess. She also has multiple cysts in her kidney and liver, and she has a small hiatal hernia. During her course in the ER, it looks like she was found to be hypotensive. Central line was placed and she was started on pressors. They started to try to transfer her, however, there were no beds available in [place], so she was admitted here. She did receive some steroids for her hypotension. Her white cell count 7.16, hemoglobin of 10.8, platelet count 182. Lactic acid 1.6. She was admitted to the Hospitalist Service and started on IV antibiotics. General Surgery was consulted late this evening. Patient relates that she has had a history for the past 2 months of having left lower abdominal pain. She says she has gone multiple times to her clinic in [place] where she lives for this. She says she has been given antibiotics and the pain will kind of go away, but then come back. She says 2 weeks ago, she had a very severe pain like this. She could barely walk. Again, they gave her outpatient medicines, which seem to help until last night. Patient denies any fevers or chills. Patient denies any changes in her bowel habits other than over the last couple of weeks has been a little more painful to have a bowel movement, and she feels like it is more difficult to have a bowel movement, even though her stools are not hard. Patient is in town to go to her niece's . Throughout the day, patient has been weaned off her pressors and is now not on any. She reports that her abdominal pain just maybe marginally better, but still she says it is quite tender. She describes the pain as a sharp left lower quadrant pain, although it does sort of go across her lower abdomen. PAST MEDICAL HISTORY: Significant for: 1. Hypertension. 2. Polycystic kidney disease. 3. Asthma. CURRENT HOME MEDICATIONS: 1. Breo Ellipta 200/25 mcg inhaler daily. 2. Singulair 10 mg p.o. daily. 3. Cozaar 25 mg p.o. daily. 4. Albuterol inhaler p.r.n. ALLERGIES: Hydrocodone. PAST SURGICAL HISTORY: 1. Knee scope. 2. Tubal ligation. FAMILY HISTORY: Father, brother, and sister all have polycystic kidney disease. SOCIAL HISTORY: Patient denies any tobacco use. Denies any illicit drug use. Denies any alcohol use. She does live in [place], but here for her niece's . LABORATORY DATA: White cell count is 10.16, hemoglobin 10.8, platelet count is 182. Sodium 142, potassium 3.5, chloride 107, bicarb is 25.1, BUN 12, creatinine 1.2, glucose is 98. Lactic acid is 1.6. COVID is negative. IMAGING: As per HPI. I did review the CT scan and the report. PHYSICAL EXAMINATION: GENERAL: Patient is resting comfortably in her room. She is alert and oriented, in no acute distress. VITAL SIGNS: Temperature is 98.7, pulse is 102, blood pressure is 125/78, saturating 98% on room air. HEENT: Head normocephalic, atraumatic. LUNGS: Clear to auscultation bilaterally. No rhonchi or wheezes are heard. HEART: Regular rate and rhythm. No murmur appreciated. ABDOMEN: Soft and nondistended. She is tender in her lower abdomen. She does have guarding in left lower abdomen. EXTREMITIES: No edema. NEUROLOGIC: Grossly no motor or neurologic deficit noted. ASSESSMENT AND PLAN: A pleasant 65-year-old female. It sounds like she has an ongoing diverticulitis for the past 2 months, treated just with outpatient antibiotics, but it does not sound like it has ever completely resolved. Patient was admitted to our hospital. She has been started on antibiotics and given IV hydration. She was having hypotension, but this has since resolved. Patient does not have an elevated white cell count nor lactic acid. I did go over with the patient what diverticulosis was, also went over what diverticulitis was. I went over that we try to treat this first with IV antibiotics to get over the acute infection. After this, she would likely benefit from a colonoscopy to make sure this is diverticulitis and not something else with the wall thickening. At this time, patient might consider maybe elective sigmoid colectomy if she does continue having recurrent diverticulitis, but I went over again that this is usually when the diverticulitis bout has passed. I went over that if she does end up needing to have surgery that often this end up with a colostomy or ileostomy. I did answer all the patient's questions. I also discussed with the Medicine team. Surgery will continue to follow. JESSI ORTIZ /[id number] MTDD
[2021-05-10] MEDS: Morphine 2 MG/ML SYRINGE IVPUSH PRN ×6 (00:41→21:27)
[2021-05-10] MEDS: Lactated Ringers 1,000 ML IV SCH ×3 (02:28→21:37)
[2021-05-10 04:42] LABS: CARBON DIOXIDE,CO2 24.4 mmol/L (21.0-32.0)
[2021-05-10] MEDS: Piperacillin/Tazobactam 3.375 GM in Sodium Chloride 0.9% 50 ML IV SCH ×4 (05:08→23:44)
[2021-05-10] MEDS: Acetaminophen 1,000 MG in Premix Bag 1 BAG IV PRN ×3 (08:59→23:43)
[2021-05-10] MEDS: Pantoprazole 40 MG Tab.CR PO SCH (08:59)
[2021-05-10] MEDS: Heparin Sodium 5,000 Units/ML Vial SUBCUT SCH ×2 (10:38→21:22)
--- NOTE | 2021-05-10 11:33 | PN ---
SUBJECTIVE: The patient was sleeping actually, resting comfortably in the room, I woke her up. The patient says she had an okay night. She says she might be a little bit better than last evening. Still no flatus. Still has pain in the left lower abdomen that is sharp, although pain is not radiating over to the right side as much as it was yesterday. She continues to be off any pressor support. The patient says she has been urinating. She says it was less tender when she got up to go to the bathroom this morning. Again overall, patient says she is feeling slightly better than last night. OBJECTIVE: She is lying comfortably in her bed. She is alert and oriented, in no acute distress. VITALS: Temperature is 97.8, pulse is 93, blood pressure is 92/55. ABDOMEN: Soft and nondistended. She again is tender in her left lower abdomen. Some voluntary guarding. She is a little less tender than last night in the left lower abdomen and quite a bit less tender in the right abdomen on palpation. RECTAL: Exam was done with waste disposal plant operator in the room. Does have some external hemorrhoidal skin tissue to the rectal exam. I do not feel any masses and no blood or stool on withdrawal. ASSESSMENT AND PLAN: The patient is a pleasant 65-year-old female who has had abdominal pain off and on for the last several months. She had been treated for diverticulitis with antibiotics as outpatient. However, while there, had severe pain and came to the ER. She had a CT scan that showed some inflammation and edema of sigmoid colon, but no perforation or abscess formation. She is admitted for IV antibiotics, hydration. The patient has been improving. Her pain is slightly improved. Her white cell count did go up a little bit from 10.16 to 11.48. Although this could also be because she got a dose of steroids yesterday. Again went over with the patient that we will continue IV antibiotics and bowel rest. However, if she does not continue to improve or gets worse, potentially she might still need a surgery such as a sigmoid colectomy. However, she does seem to be improving. Answered all the patient's questions. Did speak with the Medicine team about the patient. The patient will be signed out to Dr. Padilla for the weekend. JESSI / DIANA /[id number] MTDD
[2021-05-10] MEDS: Ondansetron 4 MG/2 ML SDV IVPUSH PRN (12:04)
--- NOTE | 2021-05-10 16:00 | PCM.PN ---
- General Info Date of Service: 05/10/21 Subjective Update: The patient is a 65-year-old female, on day 2 of service, who has a significant past medical history of polycystic kidney disease, asthma, and hypertension, who was admitted to the intensive care unit for hypotension as a secondary diagnosis to her diverticulitis, her primary diagnosis. Her blood pressures have slightly improved with norepinephrine treatment. Upon interview with the patient today she says that her abdominal pain is slightly improved and is 7 out of 10 in intensity when she receives morphine. She was seen by surgeon Dr. Amos Moraes and it was explained to her that she will need to continue IV antibiotics until her condition is improved which will be followed up by a colonoscopy for visualization of her internal large colon. The patient does not want to eat but does explain that when she drinks Gatorade she tolerates it well and it makes her feel better, as a result she has been progressed from n.p.o. to clear liquid diet. The patient and the were seen by myself and Dr. Donovan Moraes today, the management plan was outlined for them moving forward. She has no other concerns at this time. - Review of Systems General: Denies: Fever, Weakness, Fatigue HEENT: Denies: Headaches, Sore Throat Pulmonary: Denies: Shortness of Breath, Cough Cardiovascular: Denies: Chest Pain, Palpitations Gastrointestinal: Reports: Abdominal Pain Genitourinary: Denies: Dysuria, Frequency - Patient Data Vitals - Most Recent: Last Vital Signs Temp 98.2 F 05/10/21 12:00 Pulse 87 05/09/21 15:20 Resp 15 05/10/21 15:00 BP 99/64 05/10/21 15:00 Pulse Ox 95 05/10/21 15:00 Weight - Most Recent: 141 lb 11.2 oz I&O - Last 24 Hours: Intake & Output 05/10/21 05/10/21 05/10/21 06:59 14:59 22:59 Intake Total 100 Output Total 850 Balance -750 Lab Results Last 24 Hours: Laboratory Results - last 24 hr 05/09/21 05/09/21 05/10/21 Range/Units 16:48 22:15 04:14 WBC (4.0-11.0) K/uL RBC (4.30-5.90) M/uL Hgb (12.0-16.0) g/dL Hct (36.0-46.0) % MCV (80.0-98.0) fL MCH (27.0-32.0) pg MCHC (31.0-37.0) g/dL RDW Std Deviation (28.0-62.0) fl RDW Coeff of Lucio (11.0-15.0) % Plt Count (150-400) K/uL MPV (7.40-12.00) fL Neut % (Auto) (48.0-80.0) % Lymph % (Auto) (16.0-40.0) % [place] % (Auto) (0.0-15.0) % Eos % (Auto) (0.0-7.0) % Baso % (Auto) (0.0-1.5) % Neut # (Auto) (1.4-5.7) K/uL Lymph # (Auto) (0.6-2.4) K/uL [place] # (Auto) (0.0-0.8) K/uL Eos # (Auto) (0.0-0.7) K/uL Baso # (Auto) (0.0-0.1) K/uL Nucleated RBC % /100WBC Nucleated RBCs # K/uL APTT 29.6 30.7 33.6 H (18.6-31.3) SEC Sodium (136-145) mmol/L Potassium (3.5-5.1) mmol/L Chloride (98-107) mmol/L Carbon Dioxide (21.0-32.0) mmol/L BUN (7.0-18.0) mg/dL Creatinine (0.6-1.0) mg/dL Est Cr Clr Drug Dosing mL/min Estimated GFR (MDRD) ml/min Glucose (74-106) mg/dL Calcium (8.5-10.1) mg/dL Total Bilirubin (0.2-1.0) mg/dL AST (15-37) IU/L ALT (14-63) IU/L Alkaline Phosphatase (46-116) U/L Total Protein (6.4-8.2) g/dL Albumin (3.4-5.0) g/dL Globulin (2.6-4.0) g/dL Albumin/Globulin Ratio (0.9-1.6) 05/10/21 05/10/21 05/10/21 Range/Units 04:14 04:14 10:10 WBC 11.48 H (4.0-11.0) K/uL RBC 3.19 L (4.30-5.90) M/uL Hgb 10.4 L (12.0-16.0) g/dL Hct 30.0 L (36.0-46.0) % MCV 94.0 (80.0-98.0) fL MCH 32.6 H (27.0-32.0) pg MCHC 34.7 (31.0-37.0) g/dL RDW Std Deviation 47.4 (28.0-62.0) fl RDW Coeff of Lucio 14 (11.0-15.0) % Plt Count 162 (150-400) K/uL MPV 9.70 (7.40-12.00) fL Neut % (Auto) 89.7 H (48.0-80.0) % Lymph % (Auto) 6.8 L (16.0-40.0) % [place] % (Auto) 3.4 (0.0-15.0) % Eos % (Auto) 0.0 (0.0-7.0) % Baso % (Auto) 0.1 (0.0-1.5) % Neut # (Auto) 10.3 H (1.4-5.7) K/uL Lymph # (Auto) 0.8 (0.6-2.4) K/uL [place] # (Auto) 0.4 (0.0-0.8) K/uL Eos # (Auto) 0.0 (0.0-0.7) K/uL Baso # (Auto) 0.0 (0.0-0.1) K/uL Nucleated RBC % 0.0 /100WBC Nucleated RBCs # 0 K/uL APTT 33.6 H (18.6-31.3) SEC Sodium 142 (136-145) mmol/L Potassium 4.0 (3.5-5.1) mmol/L Chloride 106 (98-107) mmol/L Carbon Dioxide 24.4 (21.0-32.0) mmol/L BUN 13 (7.0-18.0) mg/dL Creatinine 1.3 H (0.6-1.0) mg/dL Est Cr Clr Drug Dosing 33.42 mL/min Estimated GFR (MDRD) 41.4 ml/min Glucose 104 (74-106) mg/dL Calcium 7.0 L (8.5-10.1) mg/dL Total Bilirubin 0.8 (0.2-1.0) mg/dL AST 18 (15-37) IU/L ALT 19 (14-63) IU/L Alkaline Phosphatase 59 (46-116) U/L Total Protein 5.0 L (6.4-8.2) g/dL Albumin 2.4 L (3.4-5.0) g/dL Globulin 2.6 (2.6-4.0) g/dL Albumin/Globulin Ratio 0.9 (0.9-1.6) Alex Results Last 24 Hours: Microbiology 05/09/21 05:30 Aerobic Blood Culture - Preliminary Blood - Venous - Lab Draw NO GROWTH AFTER 1 DAY Anaerobic Blood Culture - Preliminary NO GROWTH AFTER 1 DAY 05/09/21 05:21 Aerobic Blood Culture - Preliminary Blood - Venous NO GROWTH AFTER 1 DAY Anaerobic Blood Culture - Preliminary NO GROWTH AFTER 1 DAY Med Orders - Current: Current Medications Acetaminophen (Acetaminophen 325 Mg Tab) 650 mg PO Q6H PRN PRN Reason: Pain Albuterol/Ipratropium (Albuterol/Ipratropium 3.0-0.5 Mg/3 Ml Neb Soln) 3 ml NEB Q4HRRT PRN PRN Reason: Shortness of Breath Heparin Sodium (Porcine) (Heparin Sodium 5,000 Units/Ml Vial) 5,000 units SUBCUT Q12H MARIAJOSE Last Admin: 05/10/21 10:38 Dose: 5,000 units Documented by: Sodium Chloride (Normal Saline) 1,000 mls @ 150 mls/hr IV ASDIRECTED MARIAJOSE Last Infusion: 05/09/21 07:01 Dose: 999 mls/hr Documented by: Lactated Ringer's (Ringers, Lactated) 1,000 mls @ 999 mls/hr IV ASDIRECTED MARIAJOSE Last Admin: 05/09/21 08:28 Dose: 999 mls/hr Documented by: Lactated Ringer's (Ringers, Lactated) 1,000 mls @ 125 mls/hr IV ASDIRECTED MARIAJOSE Last Admin: 05/10/21 10:38 Dose: 125 mls/hr Documented by: Piperacillin Sod/Tazobactam (Sod 3.375 gm/ Sodium Chloride) 50 mls @ 100 mls/hr IV Q6H [facility] Last Admin: 05/10/21 12:04 Dose: 100 mls/hr Documented by: Norepinephrine Bitartrate (Norepinephr-0.9% Nacl 4 Mg/250) 4 mg in 250 mls @ 7.5 mls/hr IV TITRATE [facility]; Protocol Last Titration: 05/09/21 19:35 Dose: 0 mcg/min, 0 mls/hr Documented by: Acetaminophen 1,000 mg/ Premix 100 mls @ 400 mls/hr IV Q6H PRN PRN Reason: Pain Last Admin: 05/10/21 08:59 Dose: 400 mls/hr Documented by: Morphine Sulfate (Morphine 2 Mg/Ml Syringe) 2 mg IVPUSH Q2H PRN PRN Reason: Pain Last Admin: 05/10/21 12:03 Dose: 2 mg Documented by: Ondansetron HCl (Ondansetron 4 Mg/2 Ml Sdv) 4 mg IVPUSH Q4H PRN PRN Reason: Nausea Last Admin: 05/10/21 12:04 Dose: 4 mg Documented by: Pantoprazole Sodium (Pantoprazole 40 Mg Tab.Cr) 40 mg PO DAILY [facility] Last Admin: 05/10/21 08:59 Dose: 40 mg Documented by: Discontinued Medications Acetaminophen (Acetaminophen 325 Mg Tab) 650 mg PO NOW ONE Stop: 05/09/21 02:21 Last Admin: 05/09/21 02:30 Dose: 650 mg Documented by: Acetaminophen (Acetaminophen 325 Mg/10.15 Ml Ml) 325 mg PO NOW ONE Stop: 05/09/21 05:21 Last Admin: 05/09/21 05:25 Dose: Not Given Documented by: Acetaminophen (Acetaminophen 325 Mg Tab) 325 mg PO NOW ONE Stop: 05/09/21 05:25 Last Admin: 05/09/21 05:30 Dose: Not Given Documented by: Hydrocortisone Sodium Succinate (Hydrocortisone Sodium Succinate 100 Mg/2 Ml Sdv) 100 mg IVPUSH ONETIME ONE Stop: 05/09/21 10:09 Last Admin: 05/09/21 11:10 Dose: 100 mg Documented by: Sodium Chloride (Normal Saline) 1,000 mls @ 999 mls/hr IV NOW STA Stop: 05/09/21 03:51 Last Admin: 05/09/21 02:58 Dose: 999 mls/hr Documented by: Piperacillin Sod/Tazobactam (Sod 3.375 gm/ Sodium Chloride) 50 mls @ 100 mls/hr IV ONETIME ONE Stop: 05/09/21 05:12 Last Admin: 05/09/21 04:59 Dose: 100 mls/hr Documented by: Sodium Chloride (Normal Saline) 1,000 mls @ 999 mls/hr IV NOW STA Stop: 05/09/21 06:17 Last Admin: 05/09/21 05:28 Dose: 999 mls/hr Documented by: Iopamidol (Iopamidol 755 Mg/Ml 500 Ml Multipack Bottle) 80 ml IVPUSH ONETIME STA Stop: 05/09/21 03:22 Last Admin: 05/09/21 03:21 Dose: 80 ml Documented by: Ketorolac Tromethamine (Ketorolac 30 Mg/Ml Sdv) 30 mg IVPUSH ONETIME ONE Stop: 05/09/21 05:30 Last Admin: 05/09/21 05:43 Dose: 30 mg Documented by: Losartan Potassium (Losartan 50 Mg Tab) 25 mg PO DAILY MARIAJOSE Last Admin: 05/09/21 13:51 Dose: Not Given Documented by: Morphine Sulfate (Morphine 4 Mg/Ml Syringe) 4 mg IVPUSH ONETIME ONE Stop: 05/09/21 10:54 Last Admin: 05/09/21 11:11 Dose: 4 mg Documented by: Morphine Sulfate (Morphine 2 Mg/Ml Syringe) 2 mg IVPUSH ONETIME ONE Stop: 05/09/21 14:51 Last Admin: 05/09/21 15:16 Dose: 2 mg Documented by: Ondansetron HCl (Ondansetron 4 Mg/2 Ml Sdv) 4 mg IVPUSH ONETIME ONE Stop: 05/09/21 02:55 Last Admin: 05/09/21 02:58 Dose: 4 mg Documented by: Ondansetron HCl (Ondansetron 4 Mg/2 Ml Sdv) Confirm Administered Dose 4 mg .ROUTE .STK-MED ONE Stop: 05/09/21 02:56 Last Admin: 05/09/21 02:58 Dose: Not Given Documented by: - Exam Central Line Total Time: 1Days 2Hours General: Alert, Oriented, Cooperative HEENT: Mucous Membr. Moist/[place] Neck: Trachea Midline Lungs: Clear to Auscultation, Normal Respiratory Effort Cardiovascular: Regular Rate, Regular Rhythm, No Murmurs GI/Abdominal Exam: Tender Extremities: Other (SCDs on bilateral lower extremities) - Patient Data Lab Results Last 24 hrs: Laboratory Results - last 24 hr 05/09/21 05/09/21 05/10/21 Range/Units 16:48 22:15 04:14 WBC (4.0-11.0) K/uL RBC (4.30-5.90) M/uL Hgb (12.0-16.0) g/dL Hct (36.0-46.0) % MCV (80.0-98.0) fL MCH (27.0-32.0) pg MCHC (31.0-37.0) g/dL RDW Std Deviation (28.0-62.0) fl RDW Coeff of Lucio (11.0-15.0) % Plt Count (150-400) K/uL MPV (7.40-12.00) fL Neut % (Auto) (48.0-80.0) % Lymph % (Auto) (16.0-40.0) % [place] % (Auto) (0.0-15.0) % Eos % (Auto) (0.0-7.0) % Baso % (Auto) (0.0-1.5) % Neut # (Auto) (1.4-5.7) K/uL Lymph # (Auto) (0.6-2.4) K/uL [place] # (Auto) (0.0-0.8) K/uL Eos # (Auto) (0.0-0.7) K/uL Baso # (Auto) (0.0-0.1) K/uL Nucleated RBC % /100WBC Nucleated RBCs # K/uL APTT 29.6 30.7 33.6 H (18.6-31.3) SEC Sodium (136-145) mmol/L Potassium (3.5-5.1) mmol/L Chloride (98-107) mmol/L Carbon Dioxide (21.0-32.0) mmol/L BUN (7.0-18.0) mg/dL Creatinine (0.6-1.0) mg/dL Est Cr Clr Drug Dosing mL/min Estimated GFR (MDRD) ml/min Glucose (74-106) mg/dL Calcium (8.5-10.1) mg/dL Total Bilirubin (0.2-1.0) mg/dL AST (15-37) IU/L ALT (14-63) IU/L Alkaline Phosphatase (46-116) U/L Total Protein (6.4-8.2) g/dL Albumin (3.4-5.0) g/dL Globulin (2.6-4.0) g/dL Albumin/Globulin Ratio (0.9-1.6) 05/10/21 05/10/21 05/10/21 Range/Units 04:14 04:14 10:10 WBC 11.48 H (4.0-11.0) K/uL RBC 3.19 L (4.30-5.90) M/uL Hgb 10.4 L (12.0-16.0) g/dL Hct 30.0 L (36.0-46.0) % MCV 94.0 (80.0-98.0) fL MCH 32.6 H (27.0-32.0) pg MCHC 34.7 (31.0-37.0) g/dL RDW Std Deviation 47.4 (28.0-62.0) fl RDW Coeff of Lucio 14 (11.0-15.0) % Plt Count 162 (150-400) K/uL MPV 9.70 (7.40-12.00) fL Neut % (Auto) 89.7 H (48.0-80.0) % Lymph % (Auto) 6.8 L (16.0-40.0) % [place] % (Auto) 3.4 (0.0-15.0) % Eos % (Auto) 0.0 (0.0-7.0) % Baso % (Auto) 0.1 (0.0-1.5) % Neut # (Auto) 10.3 H (1.4-5.7) K/uL Lymph # (Auto) 0.8 (0.6-2.4) K/uL [place] # (Auto) 0.4 (0.0-0.8) K/uL Eos # (Auto) 0.0 (0.0-0.7) K/uL Baso # (Auto) 0.0 (0.0-0.1) K/uL Nucleated RBC % 0.0 /100WBC Nucleated RBCs # 0 K/uL APTT 33.6 H (18.6-31.3) SEC Sodium 142 (136-145) mmol/L Potassium 4.0 (3.5-5.1) mmol/L Chloride 106 (98-107) mmol/L Carbon Dioxide 24.4 (21.0-32.0) mmol/L BUN 13 (7.0-18.0) mg/dL Creatinine 1.3 H (0.6-1.0) mg/dL Est Cr Clr Drug Dosing 33.42 mL/min Estimated GFR (MDRD) 41.4 ml/min Glucose 104 (74-106) mg/dL Calcium 7.0 L (8.5-10.1) mg/dL Total Bilirubin 0.8 (0.2-1.0) mg/dL AST 18 (15-37) IU/L ALT 19 (14-63) IU/L Alkaline Phosphatase 59 (46-116) U/L Total Protein 5.0 L (6.4-8.2) g/dL Albumin 2.4 L (3.4-5.0) g/dL Globulin 2.6 (2.6-4.0) g/dL Albumin/Globulin Ratio 0.9 (0.9-1.6) Result Diagrams: 05/10/21 04:14 05/10/21 04:14 Alex Results Last 24 hrs: Microbiology 05/09/21 05:30 Aerobic Blood Culture - Preliminary Blood - Venous - Lab Draw NO GROWTH AFTER 1 DAY Anaerobic Blood Culture - Preliminary NO GROWTH AFTER 1 DAY 05/09/21 05:21 Aerobic Blood Culture - Preliminary Blood - Venous NO GROWTH AFTER 1 DAY Anaerobic Blood Culture - Preliminary NO GROWTH AFTER 1 DAY Sepsis Event Note - Evaluation Sepsis Screening Result: No Definite Risk - Focused Exam Vital Signs: Vital Signs Temp Resp BP Pulse Ox 05/10/21 15:00 15 99/64 95 05/10/21 14:00 23 H 107/68 95 05/10/21 13:00 16 95/65 95 05/10/21 12:00 98.2 F 18 99/63 93 L 05/10/21 11:00 14 97/60 96 05/10/21 10:00 18 104/61 95 05/10/21 09:00 18 90/66 95 05/10/21 08:00 98.1 F 16 91/62 94 L 05/10/21 06:00 16 92/55 L 94 L 05/10/21 05:00 13 91/51 L 93 L 05/10/21 04:00 97.8 F 16 93/59 L 93 L - Problem List & Annotations (1) HTN (hypertension) SNOMED Code(s): 03533635 Code(s): I10 - ESSENTIAL (PRIMARY) HYPERTENSION Status: Acute Current Visit: Yes (2) Asthma SNOMED Code(s): 235385654 Code(s): J45.909 - UNSPECIFIED ASTHMA, UNCOMPLICATED Status: Acute Current Visit: Yes (3) PKD (polycystic kidney disease) SNOMED Code(s): 716705790 Code(s): Q61.3 - POLYCYSTIC KIDNEY, UNSPECIFIED Status: Acute Current Visit: Yes (4) Acute diverticulitis SNOMED Code(s): 238405725 Code(s): K57.92 - DVTRCLI OF INTEST, PART UNSP, W/O PERF OR ABSCESS W/O BLEED Status: Acute Current Visit: Yes - Problem List Review Problem List Initiated/Reviewed/Updated: Yes - My Orders Last 24 Hours: My Active Orders 05/10/21 14:19 STOOL CULTURE/SHIGA TOXIN [MREF] Routine 05/10/21 Dinner Clear Liquid Diet [DIET] PTT,PARTIAL THROMBOPLSTIN TIME [COAG] Q6H 05/10/21 22:00 PTT,PARTIAL THROMBOPLSTIN TIME [COAG] Q6H 05/11/21 05:11 CBC WITH AUTO DIFF [HEME] AM CMP [COMPREHENSIVE METABOLIC PN,CMP] [CHEM] AM 05/12/21 05:11 CBC WITH AUTO DIFF [HEME] AM CMP [COMPREHENSIVE METABOLIC PN,CMP] [CHEM] AM 05/13/21 05:11 CBC WITH AUTO DIFF [HEME] AM CMP [COMPREHENSIVE METABOLIC PN,CMP] [CHEM] AM - Plan Plan:: 1. Diverticulitis of the sigmoid colon -Continue Zosyn every 6 hours via IV route -Dr. Amos Moraes saw the patient and expressed that antibiotics will be continued until her condition improves, a subsequent colonoscopy should be done after to check for any abnormalities -For pain associated with this condition, the patient has morphine 2 mg per IV route every 2 hours on board, the patient's pain has slightly improved since yesterday -Continue to monitor patient white blood cell status through daily CBC's -Zofran is on board for any nausea 2. Hypotension -The patient received norepinephrine and lactated Ringer's at 125 mL/h while in the intensive care unit in order to increase her blood pressures which are currently improving and are at 92/55 mm Hg -We will continue to monitor this patient in the ICU and treat her accordingly 3. ELENA most likely secondary to polycystic kidney disease -We will continue to monitor kidney function through daily CMP's 4. Asthma -Duo nebs are on board for shortness of breath
--- NOTE | 2021-05-10 16:27 | PN ---
THC Physician - Brief Progress [id number]/15/2021 16:25[facility] Frandy Haas, [place] - MWN (JOSE) - [facility] MARIE TIFFANYKaren Jones.Date of Service 05/10/2021 16:25HPI/Mari nts of Note eICU Progress [id number] admitted for diverticulitis. Course notable for hypotension requiri ng vasopressor support, however this was able to be weaned off per bedside documentation. History obt ained from review of EMR.Camera exam: Laying in bed. Vitals monitor reviewed. eICU Recommendations:No new recommendations at this timeContinue antibioticsIV fluids to target euvolemiaeICU will continue to follow and assist as desired.DVT and GI prophylaxis as appropriate.Thank you for allowing us to pa rticipate in the care of this patient.Unless otherwise specified, defer implementation of above recom mendations to discretion of bedside provider. Please do not hesitate to contact the eICU service for questions, clarification, or assistance with implementation.The above note transcribed with the zaynab tance of dictation software. Please excuse any errors.Interventions Major-Other: diverticulitisElectr onically Signed by: KING PINTO) on 05/10/2021 16:26
[2021-05-11] MEDS: Morphine 2 MG/ML SYRINGE IVPUSH PRN ×6 (03:14→20:12)
[2021-05-11] MEDS: Piperacillin/Tazobactam 3.375 GM in Sodium Chloride 0.9% 50 ML IV SCH ×3 (05:03→18:14)
[2021-05-11] MEDS: Lactated Ringers 1,000 ML IV SCH (05:45)
[2021-05-11 07:51] LABS: CARBON DIOXIDE,CO2 22.7 mmol/L (21.0-32.0); POTASSIUM,K 4.1 mmol/L (3.5-5.1)
[2021-05-11] MEDS: Pantoprazole 40 MG Tab.CR PO SCH (08:03)
[2021-05-11] MEDS: Heparin Sodium 5,000 Units/ML Vial SUBCUT SCH (09:10)
--- NOTE | 2021-05-11 14:05 | PCM.PN ---
<Lon Cosme - Last Filed: 05/11/21 14:43> - General Info Date of Service: 05/11/21 Subjective Update: Patient still complaining of moderate lower abdominal pain. Patient states she is able to tolerate clear liquid diet, would like to try some soft foods. Patient states she has had a bowel movement since admission but has not been eating well. - Review of Systems General: Denies: Fever, Chills Pulmonary: Denies: Shortness of Breath, Cough Cardiovascular: Denies: Chest Pain Gastrointestinal: Reports: Abdominal Pain, Constipation. Denies: Diarrhea, Nausea, Vomiting Neurological: Denies: Confusion, Dizziness - Patient Data Vitals - Most Recent: Last Vital Signs Temp 98.1 F 05/11/21 12:00 Pulse 87 05/09/21 15:20 Resp 19 05/11/21 13:00 BP 125/80 05/11/21 13:00 Pulse Ox 93 L 05/11/21 13:00 Weight - Most Recent: 66.134 kg I&O - Last 24 Hours: Intake & Output 05/10/21 05/11/21 05/11/21 22:59 06:59 14:59 Intake Total 1200 2892 300 Output Total 980 2500 500 Balance 220 392 -200 Lab Results Last 24 Hours: Laboratory Results - last 24 hr 05/10/21 05/11/21 05/11/21 Range/Units 16:01 06:25 06:25 WBC 11.41 H (4.0-11.0) K/uL RBC 3.11 L (4.30-5.90) M/uL Hgb 9.9 L (12.0-16.0) g/dL Hct 29.3 L (36.0-46.0) % MCV 94.2 (80.0-98.0) fL MCH 31.8 (27.0-32.0) pg MCHC 33.8 (31.0-37.0) g/dL RDW Std Deviation 47.7 (28.0-62.0) fl RDW Coeff of Lucio 14 (11.0-15.0) % Plt Count 160 (150-400) K/uL MPV 10.20 (7.40-12.00) fL Neut % (Auto) 93.2 H (48.0-80.0) % Lymph % (Auto) 3.9 L (16.0-40.0) % Sandoval % (Auto) 2.5 (0.0-15.0) % Eos % (Auto) 0.3 (0.0-7.0) % Baso % (Auto) 0.1 (0.0-1.5) % Neut # (Auto) 10.7 H (1.4-5.7) K/uL Lymph # (Auto) 0.4 L (0.6-2.4) K/uL Sandoval # (Auto) 0.3 (0.0-0.8) K/uL Eos # (Auto) 0.0 (0.0-0.7) K/uL Baso # (Auto) 0.0 (0.0-0.1) K/uL Nucleated RBC % 0.0 /100WBC Nucleated RBCs # 0 K/uL APTT 33.5 H (18.6-31.3) SEC Sodium 140 (136-145) mmol/L Potassium 4.1 (3.5-5.1) mmol/L Chloride 105 (98-107) mmol/L Carbon Dioxide 22.7 (21.0-32.0) mmol/L BUN 11 (7.0-18.0) mg/dL Creatinine 1.0 (0.6-1.0) mg/dL Est Cr Clr Drug Dosing 43.45 mL/min Estimated GFR (MDRD) 56.0 ml/min Glucose 96 (74-106) mg/dL Calcium 7.5 L (8.5-10.1) mg/dL Total Bilirubin 0.9 (0.2-1.0) mg/dL AST 16 (15-37) IU/L ALT 19 (14-63) IU/L Alkaline Phosphatase 77 (46-116) U/L Total Protein 5.0 L (6.4-8.2) g/dL Albumin 2.2 L (3.4-5.0) g/dL Globulin 2.8 (2.6-4.0) g/dL Albumin/Globulin Ratio 0.8 L (0.9-1.6) 05/11/21 Range/Units 06:25 WBC (4.0-11.0) K/uL RBC (4.30-5.90) M/uL Hgb (12.0-16.0) g/dL Hct (36.0-46.0) % MCV (80.0-98.0) fL MCH (27.0-32.0) pg MCHC (31.0-37.0) g/dL RDW Std Deviation (28.0-62.0) fl RDW Coeff of Lucio (11.0-15.0) % Plt Count (150-400) K/uL MPV (7.40-12.00) fL Neut % (Auto) (48.0-80.0) % Lymph % (Auto) (16.0-40.0) % Sandoval % (Auto) (0.0-15.0) % Eos % (Auto) (0.0-7.0) % Baso % (Auto) (0.0-1.5) % Neut # (Auto) (1.4-5.7) K/uL Lymph # (Auto) (0.6-2.4) K/uL Sandoval # (Auto) (0.0-0.8) K/uL Eos # (Auto) (0.0-0.7) K/uL Baso # (Auto) (0.0-0.1) K/uL Nucleated RBC % /100WBC Nucleated RBCs # K/uL APTT 35.8 H (18.6-31.3) SEC Sodium (136-145) mmol/L Potassium (3.5-5.1) mmol/L Chloride (98-107) mmol/L Carbon Dioxide (21.0-32.0) mmol/L BUN (7.0-18.0) mg/dL Creatinine (0.6-1.0) mg/dL Est Cr Clr Drug Dosing mL/min Estimated GFR (MDRD) ml/min Glucose (74-106) mg/dL Calcium (8.5-10.1) mg/dL Total Bilirubin (0.2-1.0) mg/dL AST (15-37) IU/L ALT (14-63) IU/L Alkaline Phosphatase (46-116) U/L Total Protein (6.4-8.2) g/dL Albumin (3.4-5.0) g/dL Globulin (2.6-4.0) g/dL Albumin/Globulin Ratio (0.9-1.6) Alex Results Last 24 Hours: Microbiology 05/09/21 05:30 Aerobic Blood Culture - Preliminary Blood - Venous - Lab Draw NO GROWTH AFTER 2 DAYS Anaerobic Blood Culture - Preliminary NO GROWTH AFTER 2 DAYS 05/09/21 05:21 Aerobic Blood Culture - Preliminary Blood - Venous NO GROWTH AFTER 2 DAYS Anaerobic Blood Culture - Preliminary NO GROWTH AFTER 2 DAYS Med Orders - Current: Current Medications Acetaminophen (Acetaminophen 325 Mg Tab) 650 mg PO Q6H PRN PRN Reason: Pain Albuterol/Ipratropium (Albuterol/Ipratropium 3.0-0.5 Mg/3 Ml Neb Soln) 3 ml NEB Q4HRRT PRN PRN Reason: Shortness of Breath Last Admin: 05/10/21 16:06 Dose: 3 ml Documented by: Heparin Sodium (Porcine) (Heparin Sodium 5,000 Units/Ml Vial) 5,000 units SUBCUT Q12H [facility] Last Admin: 05/11/21 09:10 Dose: 5,000 units Documented by: Piperacillin Sod/Tazobactam (Sod 3.375 gm/ Sodium Chloride) 50 mls @ 100 mls/hr IV Q6H [facility] Last Admin: 05/11/21 11:01 Dose: 100 mls/hr Documented by: Norepinephrine Bitartrate (Norepinephr-0.9% Nacl 4 Mg/250) 4 mg in 250 mls @ 7.5 mls/hr IV TITRATE [facility]; Protocol Last Titration: 05/09/21 19:35 Dose: 0 mcg/min, 0 mls/hr Documented by: Morphine Sulfate (Morphine 2 Mg/Ml Syringe) 2 mg IVPUSH Q2H PRN PRN Reason: Pain Last Admin: 05/11/21 12:11 Dose: 2 mg Documented by: Ondansetron HCl (Ondansetron 4 Mg/2 Ml Sdv) 4 mg IVPUSH Q4H PRN PRN Reason: Nausea Last Admin: 05/10/21 12:04 Dose: 4 mg Documented by: Pantoprazole Sodium (Pantoprazole 40 Mg Tab.Cr) 40 mg PO DAILY [facility] Last Admin: 05/11/21 08:03 Dose: 40 mg Documented by: Discontinued Medications Acetaminophen (Acetaminophen 325 Mg Tab) 650 mg PO NOW ONE Stop: 05/09/21 02:21 Last Admin: 05/09/21 02:30 Dose: 650 mg Documented by: Acetaminophen (Acetaminophen 325 Mg/10.15 Ml Ml) 325 mg PO NOW ONE Stop: 05/09/21 05:21 Last Admin: 05/09/21 05:25 Dose: Not Given Documented by: Acetaminophen (Acetaminophen 325 Mg Tab) 325 mg PO NOW ONE Stop: 05/09/21 05:25 Last Admin: 05/09/21 05:30 Dose: Not Given Documented by: Hydrocortisone Sodium Succinate (Hydrocortisone Sodium Succinate 100 Mg/2 Ml Sdv) 100 mg IVPUSH ONETIME ONE Stop: 05/09/21 10:09 Last Admin: 05/09/21 11:10 Dose: 100 mg Documented by: Sodium Chloride (Normal Saline) 1,000 mls @ 999 mls/hr IV NOW STA Stop: 05/09/21 03:51 Last Admin: 05/09/21 02:58 Dose: 999 mls/hr Documented by: Piperacillin Sod/Tazobactam (Sod 3.375 gm/ Sodium Chloride) 50 mls @ 100 mls/hr IV ONETIME ONE Stop: 05/09/21 05:12 Last Admin: 05/09/21 04:59 Dose: 100 mls/hr Documented by: Sodium Chloride (Normal Saline) 1,000 mls @ 999 mls/hr IV NOW STA Stop: 05/09/21 06:17 Last Admin: 05/09/21 05:28 Dose: 999 mls/hr Documented by: Sodium Chloride (Normal Saline) 1,000 mls @ 150 mls/hr IV ASDIRECTED [facility] Last Infusion: 05/09/21 07:01 Dose: 999 mls/hr Documented by: Lactated Ringer's (Ringers, Lactated) 1,000 mls @ 999 mls/hr IV ASDIRECTED [facility] Last Admin: 05/09/21 08:28 Dose: 999 mls/hr Documented by: Lactated Ringer's (Ringers, Lactated) 1,000 mls @ 125 mls/hr IV ASDIRECTED [facility] Last Infusion: 05/11/21 09:30 Dose: 0 mls/hr Documented by: Acetaminophen 1,000 mg/ Premix 100 mls @ 400 mls/hr IV Q6H PRN PRN Reason: Pain Last Admin: 05/10/21 23:43 Dose: 400 mls/hr Documented by: Iopamidol (Iopamidol 755 Mg/Ml 500 Ml Multipack Bottle) 80 ml IVPUSH ONETIME STA Stop: 05/09/21 03:22 Last Admin: 05/09/21 03:21 Dose: 80 ml Documented by: Ketorolac Tromethamine (Ketorolac 30 Mg/Ml Sdv) 30 mg IVPUSH ONETIME ONE Stop: 05/09/21 05:30 Last Admin: 05/09/21 05:43 Dose: 30 mg Documented by: Losartan Potassium (Losartan 50 Mg Tab) 25 mg PO DAILY [facility] Last Admin: 05/09/21 13:51 Dose: Not Given Documented by: Morphine Sulfate (Morphine 4 Mg/Ml Syringe) 4 mg IVPUSH ONETIME ONE Stop: 05/09/21 10:54 Last Admin: 05/09/21 11:11 Dose: 4 mg Documented by: Morphine Sulfate (Morphine 2 Mg/Ml Syringe) 2 mg IVPUSH ONETIME ONE Stop: 05/09/21 14:51 Last Admin: 05/09/21 15:16 Dose: 2 mg Documented by: Ondansetron HCl (Ondansetron 4 Mg/2 Ml Sdv) 4 mg IVPUSH ONETIME ONE Stop: 05/09/21 02:55 Last Admin: 05/09/21 02:58 Dose: 4 mg Documented by: Ondansetron HCl (Ondansetron 4 Mg/2 Ml Sdv) Confirm Administered Dose 4 mg .ROUTE .STK-MED ONE Stop: 05/09/21 02:56 Last Admin: 05/09/21 02:58 Dose: Not Given Documented by: - Exam Central Line Total Time: 2Days 1Hours General: Alert Lungs: Clear to Auscultation, Normal Respiratory Effort Cardiovascular: Regular Rate, Regular Rhythm GI/Abdominal Exam: No Distention, Guarding, Tender Extremities: No Pedal Edema - Patient Data Lab Results Last 24 hrs: Laboratory Results - last 24 hr 05/10/21 05/11/21 05/11/21 Range/Units 16:01 06:25 06:25 WBC 11.41 H (4.0-11.0) K/uL RBC 3.11 L (4.30-5.90) M/uL Hgb 9.9 L (12.0-16.0) g/dL Hct 29.3 L (36.0-46.0) % MCV 94.2 (80.0-98.0) fL MCH 31.8 (27.0-32.0) pg MCHC 33.8 (31.0-37.0) g/dL RDW Std Deviation 47.7 (28.0-62.0) fl RDW Coeff of Lucio 14 (11.0-15.0) % Plt Count 160 (150-400) K/uL MPV 10.20 (7.40-12.00) fL Neut % (Auto) 93.2 H (48.0-80.0) % Lymph % (Auto) 3.9 L (16.0-40.0) % Sandoval % (Auto) 2.5 (0.0-15.0) % Eos % (Auto) 0.3 (0.0-7.0) % Baso % (Auto) 0.1 (0.0-1.5) % Neut # (Auto) 10.7 H (1.4-5.7) K/uL Lymph # (Auto) 0.4 L (0.6-2.4) K/uL Sandoval # (Auto) 0.3 (0.0-0.8) K/uL Eos # (Auto) 0.0 (0.0-0.7) K/uL Baso # (Auto) 0.0 (0.0-0.1) K/uL Nucleated RBC % 0.0 /100WBC Nucleated RBCs # 0 K/uL APTT 33.5 H (18.6-31.3) SEC Sodium 140 (136-145) mmol/L Potassium 4.1 (3.5-5.1) mmol/L Chloride 105 (98-107) mmol/L Carbon Dioxide 22.7 (21.0-32.0) mmol/L BUN 11 (7.0-18.0) mg/dL Creatinine 1.0 (0.6-1.0) mg/dL Est Cr Clr Drug Dosing 43.45 mL/min Estimated GFR (MDRD) 56.0 ml/min Glucose 96 (74-106) mg/dL Calcium 7.5 L (8.5-10.1) mg/dL Total Bilirubin 0.9 (0.2-1.0) mg/dL AST 16 (15-37) IU/L ALT 19 (14-63) IU/L Alkaline Phosphatase 77 (46-116) U/L Total Protein 5.0 L (6.4-8.2) g/dL Albumin 2.2 L (3.4-5.0) g/dL Globulin 2.8 (2.6-4.0) g/dL Albumin/Globulin Ratio 0.8 L (0.9-1.6) 05/11/21 Range/Units 06:25 WBC (4.0-11.0) K/uL RBC (4.30-5.90) M/uL Hgb (12.0-16.0) g/dL Hct (36.0-46.0) % MCV (80.0-98.0) fL MCH (27.0-32.0) pg MCHC (31.0-37.0) g/dL RDW Std Deviation (28.0-62.0) fl RDW Coeff of Lucio (11.0-15.0) % Plt Count (150-400) K/uL MPV (7.40-12.00) fL Neut % (Auto) (48.0-80.0) % Lymph % (Auto) (16.0-40.0) % Sandoval % (Auto) (0.0-15.0) % Eos % (Auto) (0.0-7.0) % Baso % (Auto) (0.0-1.5) % Neut # (Auto) (1.4-5.7) K/uL Lymph # (Auto) (0.6-2.4) K/uL Sandoval # (Auto) (0.0-0.8) K/uL Eos # (Auto) (0.0-0.7) K/uL Baso # (Auto) (0.0-0.1) K/uL Nucleated RBC % /100WBC Nucleated RBCs # K/uL APTT 35.8 H (18.6-31.3) SEC Sodium (136-145) mmol/L Potassium (3.5-5.1) mmol/L Chloride (98-107) mmol/L Carbon Dioxide (21.0-32.0) mmol/L BUN (7.0-18.0) mg/dL Creatinine (0.6-1.0) mg/dL Est Cr Clr Drug Dosing mL/min Estimated GFR (MDRD) ml/min Glucose (74-106) mg/dL Calcium (8.5-10.1) mg/dL Total Bilirubin (0.2-1.0) mg/dL AST (15-37) IU/L ALT (14-63) IU/L Alkaline Phosphatase (46-116) U/L Total Protein (6.4-8.2) g/dL Albumin (3.4-5.0) g/dL Globulin (2.6-4.0) g/dL Albumin/Globulin Ratio (0.9-1.6) Result Diagrams: 05/11/21 06:25 05/11/21 06:25 Alex Results Last 24 hrs: Microbiology 05/09/21 05:30 Aerobic Blood Culture - Preliminary Blood - Venous - Lab Draw NO GROWTH AFTER 2 DAYS Anaerobic Blood Culture - Preliminary NO GROWTH AFTER 2 DAYS 05/09/21 05:21 Aerobic Blood Culture - Preliminary Blood - Venous NO GROWTH AFTER 2 DAYS Anaerobic Blood Culture - Preliminary NO GROWTH AFTER 2 DAYS Sepsis Event Note - Evaluation Sepsis Screening Result: No Definite Risk - Focused Exam Vital Signs: Vital Signs Temp Resp BP Pulse Ox 05/11/21 13:00 19 125/80 93 L 05/11/21 12:00 98.1 F 15 119/73 92 L 05/11/21 11:00 20 140/85 92 L 05/11/21 10:00 22 H 132/81 92 L 05/11/21 09:00 15 129/84 91 L 05/11/21 08:00 97.5 F 17 137/77 90 L 05/11/21 07:00 17 126/74 94 L 05/11/21 06:00 18 128/77 95 05/11/21 05:00 17 116/70 95 05/11/21 04:00 97.6 F 16 108/67 96 05/11/21 03:00 17 106/59 L 95 - Problem List & Annotations (1) Acute diverticulitis SNOMED Code(s): 481386333 Code(s): K57.92 - DVTRCLI OF INTEST, PART UNSP, W/O PERF OR ABSCESS W/O BLEED Status: Acute (2) Asthma SNOMED Code(s): 167849591 Code(s): J45.909 - UNSPECIFIED ASTHMA, UNCOMPLICATED Status: Acute (3) HTN (hypertension) SNOMED Code(s): 06548649 Code(s): I10 - ESSENTIAL (PRIMARY) HYPERTENSION Status: Acute - Problem List Review Problem List Initiated/Reviewed/Updated: Yes - Plan Plan:: Diverticulitis (sigmoid colon) Zosyn Q6hr IV Zofran 4mg q4hr prn, protonix 40mg q24hr, morphine 2mg q2hr prn, will switch patient to another pain medication, Toradol Patient still complaining of moderate abdo pain, Will obtain CT Abdo/pelvis w/wo contrast, rule out abscess IV fluids held as patient is developing swelling in the hands, Patient has been tolerating oral fluids, kidney functions are normal <Kanika Grimaldo - Last Filed: 05/14/21 23:09> - Patient Data Vitals - Most Recent: Last Vital Signs Temp 36.6 C 05/11/21 20:00 Pulse 92 05/11/21 20:00 Resp 16 05/11/21 20:00 BP 127/73 05/11/21 20:00 Pulse Ox 91 L 05/11/21 20:00 Alex Results Last 24 Hours: Microbiology 05/09/21 05:30 Aerobic Blood Culture - Final Blood - Venous - Lab Draw NO GROWTH AFTER 5 DAYS Anaerobic Blood Culture - Final NO GROWTH AFTER 5 DAYS 05/09/21 05:21 Aerobic Blood Culture - Final Blood - Venous NO GROWTH AFTER 5 DAYS Anaerobic Blood Culture - Final NO GROWTH AFTER 5 DAYS Med Orders - Current: Current Medications Discontinued Medications Acetaminophen (Acetaminophen 325 Mg Tab) 650 mg PO NOW ONE Stop: 05/09/21 02:21 Last Admin: 05/09/21 02:30 Dose: 650 mg Documented by: Acetaminophen (Acetaminophen 325 Mg/10.15 Ml Ml) 325 mg PO NOW ONE Stop: 05/09/21 05:21 Last Admin: 05/09/21 05:25 Dose: Not Given Documented by: Acetaminophen (Acetaminophen 325 Mg Tab) 325 mg PO NOW ONE Stop: 05/09/21 05:25 Last Admin: 05/09/21 05:30 Dose: Not Given Documented by: Acetaminophen (Acetaminophen 325 Mg Tab) 650 mg PO Q6H PRN PRN Reason: Pain Last Admin: 05/11/21 16:28 Dose: 650 mg Documented by: Albuterol/Ipratropium (Albuterol/Ipratropium 3.0-0.5 Mg/3 Ml Neb Soln) 3 ml NEB Q4HRRT PRN PRN Reason: Shortness of Breath Last Admin: 05/10/21 16:06 Dose: 3 ml Documented by: Heparin Sodium (Porcine) (Heparin Sodium 5,000 Units/Ml Vial) 5,000 units SUBCUT Q12H [facility] Last Admin: 05/11/21 09:10 Dose: 5,000 units Documented by: Hydrocortisone Sodium Succinate (Hydrocortisone Sodium Succinate 100 Mg/2 Ml Sdv) 100 mg IVPUSH ONETIME ONE Stop: 05/09/21 10:09 Last Admin: 05/09/21 11:10 Dose: 100 mg Documented by: Sodium Chloride (Normal Saline) 1,000 mls @ 999 mls/hr IV NOW STA Stop: 05/09/21 03:51 Last Admin: 05/09/21 02:58 Dose: 999 mls/hr Documented by: Piperacillin Sod/Tazobactam (Sod 3.375 gm/ Sodium Chloride) 50 mls @ 100 mls/hr IV ONETIME ONE Stop: 05/09/21 05:12 Last Admin: 05/09/21 04:59 Dose: 100 mls/hr Documented by: Sodium Chloride (Normal Saline) 1,000 mls @ 999 mls/hr IV NOW STA Stop: 05/09/21 06:17 Last Admin: 05/09/21 05:28 Dose: 999 mls/hr Documented by: Sodium Chloride (Normal Saline) 1,000 mls @ 150 mls/hr IV ASDIRECTED [facility] Last Infusion: 05/09/21 07:01 Dose: 999 mls/hr Documented by: Lactated Ringer's (Ringers, Lactated) 1,000 mls @ 999 mls/hr IV ASDIRECTED [facility] Last Admin: 05/09/21 08:28 Dose: 999 mls/hr Documented by: Lactated Ringer's (Ringers, Lactated) 1,000 mls @ 125 mls/hr IV ASDIRECTED [facility] Last Infusion: 05/11/21 09:30 Dose: 0 mls/hr Documented by: Piperacillin Sod/Tazobactam (Sod 3.375 gm/ Sodium Chloride) 50 mls @ 100 mls/hr IV Q6H [facility] Last Admin: 05/11/21 18:14 Dose: 100 mls/hr Documented by: Norepinephrine Bitartrate (Norepinephr-0.9% Nacl 4 Mg/250) 4 mg in 250 mls @ 7.5 mls/hr IV TITRATE [facility]; Protocol Last Titration: 05/09/21 19:35 Dose: 0 mcg/min, 0 mls/hr Documented by: Acetaminophen 1,000 mg/ Premix 100 mls @ 400 mls/hr IV Q6H PRN PRN Reason: Pain Last Admin: 05/10/21 23:43 Dose: 400 mls/hr Documented by: Vancomycin HCl 1 gm/ Sodium (Chloride) 250 mls @ 167 mls/hr IV Q24H [facility] Vancomycin HCl 1 gm/ Sodium (Chloride) 250 mls @ 167 mls/hr IV Q24H [facility] Last Admin: 05/11/21 19:14 Dose: Not Given Documented by: Metronidazole 500 mg/ Premix 100 mls @ 100 mls/hr IV Q8H [facility] Last Admin: 05/11/21 18:48 Dose: 100 mls/hr Documented by: Ciprofloxacin/Dextrose 400 mg/ (Premix) 200 mls @ 200 mls/hr IV Q12HR [facility] Last Admin: 05/11/21 20:15 Dose: 200 mls/hr Documented by: Lactated Ringer's (Ringers, Lactated) 1,000 mls @ 125 mls/hr IV ASDIRECTED [facility] Last Admin: 05/11/21 20:19 Dose: 125 mls/hr Documented by: Iopamidol (Iopamidol 755 Mg/Ml 500 Ml Multipack Bottle) 80 ml IVPUSH ONETIME STA Stop: 05/09/21 03:22 Last Admin: 05/09/21 03:21 Dose: 80 ml Documented by: Iopamidol (Iopamidol 755 Mg/Ml 500 Ml Multipack Bottle) 100 ml IVPUSH ONETIME ONE Stop: 05/11/21 15:19 Last Admin: 05/11/21 15:19 Dose: 100 ml Documented by: Ketorolac Tromethamine (Ketorolac 30 Mg/Ml Sdv) 30 mg IVPUSH ONETIME ONE Stop: 05/09/21 05:30 Last Admin: 05/09/21 05:43 Dose: 30 mg Documented by: Losartan Potassium (Losartan 50 Mg Tab) 25 mg PO DAILY [facility] Last Admin: 05/09/21 13:51 Dose: Not Given Documented by: Morphine Sulfate (Morphine 4 Mg/Ml Syringe) 4 mg IVPUSH ONETIME ONE Stop: 05/09/21 10:54 Last Admin: 05/09/21 11:11 Dose: 4 mg Documented by: Morphine Sulfate (Morphine 2 Mg/Ml Syringe) 2 mg IVPUSH ONETIME ONE Stop: 05/09/21 14:51 Last Admin: 05/09/21 15:16 Dose: 2 mg Documented by: Morphine Sulfate (Morphine 2 Mg/Ml Syringe) 2 mg IVPUSH Q2H PRN PRN Reason: Pain Last Admin: 05/11/21 20:12 Dose: 2 mg Documented by: Ondansetron HCl (Ondansetron 4 Mg/2 Ml Sdv) 4 mg IVPUSH ONETIME ONE Stop: 05/09/21 02:55 Last Admin: 05/09/21 02:58 Dose: 4 mg Documented by: Ondansetron HCl (Ondansetron 4 Mg/2 Ml Sdv) Confirm Administered Dose 4 mg .ROUTE .STK-MED ONE Stop: 05/09/21 02:56 Last Admin: 05/09/21 02:58 Dose: Not Given Documented by: Ondansetron HCl (Ondansetron 4 Mg/2 Ml Sdv) 4 mg IVPUSH Q4H PRN PRN Reason: Nausea Last Admin: 05/11/21 15:38 Dose: 4 mg Documented by: Pantoprazole Sodium (Pantoprazole 40 Mg Tab.Cr) 40 mg PO DAILY [facility] Last Admin: 05/11/21 08:03 Dose: 40 mg Documented by: Vancomycin HCl (Pharmacy To Dose - Vancomycin) 1 dose .XX ASDIRECTED [facility] - Patient Data Result Diagrams: 05/11/21 06:25 05/11/21 06:25 Alex Results Last 24 hrs: Microbiology 05/09/21 05:30 Aerobic Blood Culture - Final Blood - Venous - Lab Draw NO GROWTH AFTER 5 DAYS Anaerobic Blood Culture - Final NO GROWTH AFTER 5 DAYS 05/09/21 05:21 Aerobic Blood Culture - Final Blood - Venous NO GROWTH AFTER 5 DAYS Anaerobic Blood Culture - Final NO GROWTH AFTER 5 DAYS - Plan Plan:: I have seen and evaluated the patient and agree with the residents note unless specified in my note
[2021-05-11] MEDS ORDERED: Iopamidol 755 MG/ML 500 ML Multipack Bottle IVPUSH ONE (15:18)
[2021-05-11] MEDS: Ondansetron 4 MG/2 ML SDV IVPUSH PRN (15:38)
--- NOTE | 2021-05-11 16:18 | CT ---
Indication: Abdominal pain Technique: Contrast enhanced abdomen and pelvis 100 mL Isovue 370 Comparison: CT abdomen and pelvis 05/09/2021 Findings: The heart size is normal. Small pleural effusions bilaterally no pericardial effusion. Bibasilar atelectasis/consolidation. Multiple liver cysts. Liver otherwise unremarkable. Polycystic kidneys. Increased attenuation gallbladder could be related to sludge. Bowel wall thickening inflammatory change about the sigmoid colon reflecting diverticulitis adjacent extraluminal gas fluid collection measuring 4 x 2.3 centimeters there is surrounding inflammatory change in fluid. There is small amount intraperitoneal free air. This likely reflects perforated diverticulitis. Small amount of ascites. Subcutaneous mild edema. Urinary bladder unremarkable. Small amount of fluid in the pelvis. Impression: 1. Presence of small amount of free intraperitoneal air with extraluminal 4 x 2.3 centimeter adjacent gas and fluid collection next to the sigmoid colon findings most likely reflect perforated sigmoid diverticulitis. Mild amount abdominal pelvic ascites. Adjacent inflammatory change and stranding about the sigmoid colon. 2. Small effusions. Bibasilar atelectasis and consolidation. 3. Cysts in the liver and polycystic kidneys. Please note that all CT scans at this facility use dose modulation, iterative reconstruction, and/or weight-based dosing when appropriate to reduce radiation dose to as low as reasonably achievable. Dictated by Kailyn Morgan MD @ 05/11/2021 4:16:50 PM (Electronically Signed)
[2021-05-11] MEDS ORDERED: metroNIDAZOLE/Normal Saline 500 MG in Premix Bag 1 BAG IV SCH (18:00)
[2021-05-11] MEDS ORDERED: Ciprofloxacin in D5W 400 MG in Premix Bag 1 BAG IV SCH ×2 (18:45)
[2021-05-11] MEDS ORDERED: Lactated Ringers 1,000 ML IV SCH (19:15)
--- NOTE | 2021-05-11 20:03 | PCM.DCSUM1 ---
<Lon Cosme - Last Filed: 05/11/21 20:11> Discharge Summary - Hospital Course Free Text/Narrative:: 65-year-old female admitted for diverticulitis on 05-09-21. Patient has past medical history of polycystic kidney disease, asthma, and hypertension. Patient states roughly 2-month history of intermittent abdominal pain, with increasing left lower quadrant pain in the last 24 hours prior to admission. Patient states chronic history of diverticulitis. At admission patient denied fever, chills, chest pain, shortness of breath diarrhea, melena, bloody stools, vomiting. Patient has decreased appetite with nausea. Labs on admission- WBC 8.1, hemoglobin 10.8, hematocrit 31.3, platelet 182, BUN 12, creatinine 1.2. Urinalysis negative, patient COVID-[address] abdomen on admission showed acute diverticulitis of the sigmoid colon with no abscesses or perforation. Patient also evidence of polycystic disease and a small hiatal hernia. Patient was also hypotensive at admission and required five 1 L boluses and norepinephrine drip for short period time and was placed in the ICU for further observation. Prior to transfer patient's hypotension did resolve, patient did not require pressor medications, patient was downgraded to MedSur unit. Patient was treated with IV antibiotics and allowed a clear liquid diet which patient was tolerating during her hospital course. On 05-11-21 patient was complaining of abdominal pain and guarding with palpation during physical examination. Repeat CT abdomen was performed which showed bowel wall thickening inflammatory change about the sigmoid colon reflecting diverticulitis adjacent extraluminal gas fluid collection measuring 4 X 2.3 cm there is surrounding inflammatory change and fluid. There is small amount intraperitoneal free air. This likely reflects perforated diverticulitis. Surgery was contacted and recommendation made to transfer patient for further evaluation to a larger surgical center. Patients new CT abdomen and physical exam findings were discussed with the medical/surgical team at [facility], and patient was excepted for transfer. On transfer patient's Labs, WBC 11.4, hemoglobin 9.9, hematocrit 29.3, platelet 160, BUN 11, creatinine 1.0, AST 16, ALT 19. Vitals prior to transfer temperature 96.7, heart rate 86, blood pressure 123/79, respiratory 15, oxygen saturation 89-91% on room air. Accepting physician at [facility] was , with the hospitalist team. Patient was transferred in stable condition via ground ambulance to [facility] in [place] on 05-11-21. Patient to discuss any further medical concerns with accepting medical team. - Discharge Data Discharge Date: 05/11/21 Discharge Disposition: DC/Tfer to Acute Hospital 02 Condition: Stable - Referral to Home Health Primary Care Physician: PCP None - Discharge Diagnosis/Problem(s) (1) Acute diverticulitis SNOMED Code(s): 701333507 ICD Code: K57.92 - DVTRCLI OF INTEST, PART UNSP, W/O PERF OR ABSCESS W/O BLEED Status: Acute (2) Asthma SNOMED Code(s): 383744344 ICD Code: J45.909 - UNSPECIFIED ASTHMA, UNCOMPLICATED Status: Acute (3) HTN (hypertension) SNOMED Code(s): 71515753 ICD Code: I10 - ESSENTIAL (PRIMARY) HYPERTENSION Status: Acute - Patient Instructions Diet: NPO Notify Provider of: Fever, Increased Pain, Nausea and/or Vomiting Other/Special Instructions: Patient to be transferred to [place], [place] for surgical evaluation secondary to perforated diverticulitis. Accepting physician - Discharge Plan *PRESCRIPTION DRUG MONITORING PROGRAM REVIEWED*: Not Applicable *COPY OF PRESCRIPTION DRUG MONITORING REPORT IN PATIENT UMAIR: Not Applicable Home Medications: Home Meds Albuterol Sulfate [Albuterol Sulfate HFA] 8.5 gm INH ASDIRECTED PRN 05/09/21 [History] Fluticasone/Vilanterol [Breo Ellipta 200-25 MCG Inhalation Kit] 1 inh IH DAILY 05/09/21 [History] Losartan [Cozaar] 25 mg PO DAILY 05/09/21 [History] Montelukast [Singulair] 10 mg PO DAILY 05/09/21 [History] Forms: ED Department Discharge Referrals: PCP,None [Primary Care Provider] - - Discharge Summary/Plan Comment DC Time >30 min.: Yes Total # of Minutes for Discharge Time: 45 - General Info Date of Service: 05/11/21 Subjective Update: CT abdomen findings were discussed with the patient at which time he was made to transfer patient to a larger facility for further care. Patient advised that accepting facility was [facility]. Patient understands and is in agreements to being transferred for further evaluation and treatment. Patient denies fever, chills, vomiting, nausea, chest pain, shortness of breath. Patient states she is tolerating clear liquid diet. Patient still states mild to moderate lower abdominal pain. - Patient Data Vitals - Most Recent: Last Vital Signs Temp 96.7 F L 05/11/21 18:00 Pulse 86 05/11/21 18:00 Resp 15 05/11/21 18:00 BP 123/79 05/11/21 18:00 Pulse Ox 89 L 05/11/21 18:00 Weight - Most Recent: 66.134 kg I&O - Last 24 hours: Intake & Output 05/11/21 05/11/21 05/11/21 06:59 14:59 22:59 Intake Total 2892 300 480 Output Total 2500 500 1250 Balance 392 200 -770 Lab Results - Last 24 hrs: Laboratory Results - last 24 hr 05/11/21 05/11/21 05/11/21 Range/Units 06:25 06:25 06:25 WBC 11.41 H (4.0-11.0) K/uL RBC 3.11 L (4.30-5.90) M/uL Hgb 9.9 L (12.0-16.0) g/dL Hct 29.3 L (36.0-46.0) % MCV 94.2 (80.0-98.0) fL MCH 31.8 (27.0-32.0) pg MCHC 33.8 (31.0-37.0) g/dL RDW Std Deviation 47.7 (28.0-62.0) fl RDW Coeff of Lucio 14 (11.0-15.0) % Plt Count 160 (150-400) K/uL MPV 10.20 (7.40-12.00) fL Neut % (Auto) 93.2 H (48.0-80.0) % Lymph % (Auto) 3.9 L (16.0-40.0) % Henderson % (Auto) 2.5 (0.0-15.0) % Eos % (Auto) 0.3 (0.0-7.0) % Baso % (Auto) 0.1 (0.0-1.5) % Neut # (Auto) 10.7 H (1.4-5.7) K/uL Lymph # (Auto) 0.4 L (0.6-2.4) K/uL Henderson # (Auto) 0.3 (0.0-0.8) K/uL Eos # (Auto) 0.0 (0.0-0.7) K/uL Baso # (Auto) 0.0 (0.0-0.1) K/uL Nucleated RBC % 0.0 /100WBC Nucleated RBCs # 0 K/uL APTT 35.8 H (18.6-31.3) SEC Sodium 140 (136-145) mmol/L Potassium 4.1 (3.5-5.1) mmol/L Chloride 105 (98-107) mmol/L Carbon Dioxide 22.7 (21.0-32.0) mmol/L BUN 11 (7.0-18.0) mg/dL Creatinine 1.0 (0.6-1.0) mg/dL Est Cr Clr Drug Dosing 43.45 mL/min Estimated GFR (MDRD) 56.0 ml/min Glucose 96 (74-106) mg/dL Calcium 7.5 L (8.5-10.1) mg/dL Total Bilirubin 0.9 (0.2-1.0) mg/dL AST 16 (15-37) IU/L ALT 19 (14-63) IU/L Alkaline Phosphatase 77 (46-116) U/L Total Protein 5.0 L (6.4-8.2) g/dL Albumin 2.2 L (3.4-5.0) g/dL Globulin 2.8 (2.6-4.0) g/dL Albumin/Globulin Ratio 0.8 L (0.9-1.6) KARLA Results - Last 24 hrs: Microbiology 05/09/21 05:30 Aerobic Blood Culture - Preliminary Blood - Venous - Lab Draw NO GROWTH AFTER 2 DAYS Anaerobic Blood Culture - Preliminary NO GROWTH AFTER 2 DAYS 05/09/21 05:21 Aerobic Blood Culture - Preliminary Blood - Venous NO GROWTH AFTER 2 DAYS Anaerobic Blood Culture - Preliminary NO GROWTH AFTER 2 DAYS Med Orders - Current: Current Medications Acetaminophen (Acetaminophen 325 Mg Tab) 650 mg PO Q6H PRN PRN Reason: Pain Last Admin: 05/11/21 16:28 Dose: 650 mg Documented by: Albuterol/Ipratropium (Albuterol/Ipratropium 3.0-0.5 Mg/3 Ml Neb Soln) 3 ml NEB Q4HRRT PRN PRN Reason: Shortness of Breath Last Admin: 05/10/21 16:06 Dose: 3 ml Documented by: Heparin Sodium (Porcine) (Heparin Sodium 5,000 Units/Ml Vial) 5,000 units SUBCUT Q12H [facility] Last Admin: 05/11/21 09:10 Dose: 5,000 units Documented by: Norepinephrine Bitartrate (Norepinephr-0.9% Nacl 4 Mg/250) 4 mg in 250 mls @ 7.5 mls/hr IV TITRATE [facility]; Protocol Last Titration: 05/09/21 19:35 Dose: 0 mcg/min, 0 mls/hr Documented by: Metronidazole 500 mg/ Premix 100 mls @ 100 mls/hr IV Q8H [facility] Last Admin: 05/11/21 18:48 Dose: 100 mls/hr Documented by: Ciprofloxacin/Dextrose 400 mg/ (Premix) 200 mls @ 200 mls/hr IV Q12HR [facility] Lactated Ringer's (Ringers, Lactated) 1,000 mls @ 125 mls/hr IV ASDIRECTED [facility] Morphine Sulfate (Morphine 2 Mg/Ml Syringe) 2 mg IVPUSH Q2H PRN PRN Reason: Pain Last Admin: 05/11/21 14:47 Dose: 2 mg Documented by: Ondansetron HCl (Ondansetron 4 Mg/2 Ml Sdv) 4 mg IVPUSH Q4H PRN PRN Reason: Nausea Last Admin: 05/11/21 15:38 Dose: 4 mg Documented by: Pantoprazole Sodium (Pantoprazole 40 Mg Tab.Cr) 40 mg PO DAILY [facility] Last Admin: 05/11/21 08:03 Dose: 40 mg Documented by: Discontinued Medications Acetaminophen (Acetaminophen 325 Mg Tab) 650 mg PO NOW ONE Stop: 05/09/21 02:21 Last Admin: 05/09/21 02:30 Dose: 650 mg Documented by: Acetaminophen (Acetaminophen 325 Mg/10.15 Ml Ml) 325 mg PO NOW ONE Stop: 05/09/21 05:21 Last Admin: 05/09/21 05:25 Dose: Not Given Documented by: Acetaminophen (Acetaminophen 325 Mg Tab) 325 mg PO NOW ONE Stop: 05/09/21 05:25 Last Admin: 05/09/21 05:30 Dose: Not Given Documented by: Hydrocortisone Sodium Succinate (Hydrocortisone Sodium Succinate 100 Mg/2 Ml Sdv) 100 mg IVPUSH ONETIME ONE Stop: 05/09/21 10:09 Last Admin: 05/09/21 11:10 Dose: 100 mg Documented by: Sodium Chloride (Normal Saline) 1,000 mls @ 999 mls/hr IV NOW STA Stop: 05/09/21 03:51 Last Admin: 05/09/21 02:58 Dose: 999 mls/hr Documented by: Piperacillin Sod/Tazobactam (Sod 3.375 gm/ Sodium Chloride) 50 mls @ 100 mls/hr IV ONETIME ONE Stop: 05/09/21 05:12 Last Admin: 05/09/21 04:59 Dose: 100 mls/hr Documented by: Sodium Chloride (Normal Saline) 1,000 mls @ 999 mls/hr IV NOW STA Stop: 05/09/21 06:17 Last Admin: 05/09/21 05:28 Dose: 999 mls/hr Documented by: Sodium Chloride (Normal Saline) 1,000 mls @ 150 mls/hr IV ASDIRECTED [facility] Last Infusion: 05/09/21 07:01 Dose: 999 mls/hr Documented by: Lactated Ringer's (Ringers, Lactated) 1,000 mls @ 999 mls/hr IV ASDIRECTED [facility] Last Admin: 05/09/21 08:28 Dose: 999 mls/hr Documented by: Lactated Ringer's (Ringers, Lactated) 1,000 mls @ 125 mls/hr IV ASDIRECTED [facility] Last Infusion: 05/11/21 09:30 Dose: 0 mls/hr Documented by: Piperacillin Sod/Tazobactam (Sod 3.375 gm/ Sodium Chloride) 50 mls @ 100 mls/hr IV Q6H [facility] Last Admin: 05/11/21 18:14 Dose: 100 mls/hr Documented by: Acetaminophen 1,000 mg/ Premix 100 mls @ 400 mls/hr IV Q6H PRN PRN Reason: Pain Last Admin: 05/10/21 23:43 Dose: 400 mls/hr Documented by: Vancomycin HCl 1 gm/ Sodium (Chloride) 250 mls @ 167 mls/hr IV Q24H [facility] Vancomycin HCl 1 gm/ Sodium (Chloride) 250 mls @ 167 mls/hr IV Q24H [facility] Last Admin: 05/11/21 19:14 Dose: Not Given Documented by: Iopamidol (Iopamidol 755 Mg/Ml 500 Ml Multipack Bottle) 80 ml IVPUSH ONETIME STA Stop: 05/09/21 03:22 Last Admin: 05/09/21 03:21 Dose: 80 ml Documented by: Iopamidol (Iopamidol 755 Mg/Ml 500 Ml Multipack Bottle) 100 ml IVPUSH ONETIME ONE Stop: 05/11/21 15:19 Last Admin: 05/11/21 15:19 Dose: 100 ml Documented by: Ketorolac Tromethamine (Ketorolac 30 Mg/Ml Sdv) 30 mg IVPUSH ONETIME ONE Stop: 05/09/21 05:30 Last Admin: 05/09/21 05:43 Dose: 30 mg Documented by: Losartan Potassium (Losartan 50 Mg Tab) 25 mg PO DAILY [facility] Last Admin: 05/09/21 13:51 Dose: Not Given Documented by: Morphine Sulfate (Morphine 4 Mg/Ml Syringe) 4 mg IVPUSH ONETIME ONE Stop: 05/09/21 10:54 Last Admin: 05/09/21 11:11 Dose: 4 mg Documented by: Morphine Sulfate (Morphine 2 Mg/Ml Syringe) 2 mg IVPUSH ONETIME ONE Stop: 05/09/21 14:51 Last Admin: 05/09/21 15:16 Dose: 2 mg Documented by: Ondansetron HCl (Ondansetron 4 Mg/2 Ml Sdv) 4 mg IVPUSH ONETIME ONE Stop: 05/09/21 02:55 Last Admin: 05/09/21 02:58 Dose: 4 mg Documented by: Ondansetron HCl (Ondansetron 4 Mg/2 Ml Sdv) Confirm Administered Dose 4 mg .ROUTE .STK-MED ONE Stop: 05/09/21 02:56 Last Admin: 05/09/21 02:58 Dose: Not Given Documented by: Vancomycin HCl (Pharmacy To Dose - Vancomycin) 1 dose .XX ASDIRECTED [facility] <Kanika Grimaldo - Last Filed: 05/14/21 23:13> Discharge Summary - Hospital Course Free Text/Narrative:: I have seen and evaluated the patient and agree with the residents note unless specified in my note - Referral to Home Health Primary Care Physician: PCP None - Patient Data Vitals - Most Recent: Last Vital Signs Temp 36.6 C 05/11/21 20:00 Pulse 92 05/11/21 20:00 Resp 16 05/11/21 20:00 BP 127/73 05/11/21 20:00 Pulse Ox 91 L 05/11/21 20:00 KARLA Results - Last 24 hrs: Microbiology 05/09/21 05:30 Aerobic Blood Culture - Final Blood - Venous - Lab Draw NO GROWTH AFTER 5 DAYS Anaerobic Blood Culture - Final NO GROWTH AFTER 5 DAYS 05/09/21 05:21 Aerobic Blood Culture - Final Blood - Venous NO GROWTH AFTER 5 DAYS Anaerobic Blood Culture - Final NO GROWTH AFTER 5 DAYS Med Orders - Current: Current Medications Discontinued Medications Acetaminophen (Acetaminophen 325 Mg Tab) 650 mg PO NOW ONE Stop: 05/09/21 02:21 Last Admin: 05/09/21 02:30 Dose: 650 mg Documented by: Acetaminophen (Acetaminophen 325 Mg/10.15 Ml Ml) 325 mg PO NOW ONE Stop: 05/09/21 05:21 Last Admin: 05/09/21 05:25 Dose: Not Given Documented by: Acetaminophen (Acetaminophen 325 Mg Tab) 325 mg PO NOW ONE Stop: 05/09/21 05:25 Last Admin: 05/09/21 05:30 Dose: Not Given Documented by: Acetaminophen (Acetaminophen 325 Mg Tab) 650 mg PO Q6H PRN PRN Reason: Pain Last Admin: 05/11/21 16:28 Dose: 650 mg Documented by: Albuterol/Ipratropium (Albuterol/Ipratropium 3.0-0.5 Mg/3 Ml Neb Soln) 3 ml NEB Q4HRRT PRN PRN Reason: Shortness of Breath Last Admin: 05/10/21 16:06 Dose: 3 ml Documented by: Heparin Sodium (Porcine) (Heparin Sodium 5,000 Units/Ml Vial) 5,000 units SUBCUT Q12H [facility] Last Admin: 05/11/21 09:10 Dose: 5,000 units Documented by: Hydrocortisone Sodium Succinate (Hydrocortisone Sodium Succinate 100 Mg/2 Ml Sdv) 100 mg IVPUSH ONETIME ONE Stop: 05/09/21 10:09 Last Admin: 05/09/21 11:10 Dose: 100 mg Documented by: Sodium Chloride (Normal Saline) 1,000 mls @ 999 mls/hr IV NOW STA Stop: 05/09/21 03:51 Last Admin: 05/09/21 02:58 Dose: 999 mls/hr Documented by: Piperacillin Sod/Tazobactam (Sod 3.375 gm/ Sodium Chloride) 50 mls @ 100 mls/hr IV ONETIME ONE Stop: 05/09/21 05:12 Last Admin: 05/09/21 04:59 Dose: 100 mls/hr Documented by: Sodium Chloride (Normal Saline) 1,000 mls @ 999 mls/hr IV NOW STA Stop: 05/09/21 06:17 Last Admin: 05/09/21 05:28 Dose: 999 mls/hr Documented by: Sodium Chloride (Normal Saline) 1,000 mls @ 150 mls/hr IV ASDIRECTED [facility] Last Infusion: 05/09/21 07:01 Dose: 999 mls/hr Documented by: Lactated Ringer's (Ringers, Lactated) 1,000 mls @ 999 mls/hr IV ASDIRECTED [facility] Last Admin: 05/09/21 08:28 Dose: 999 mls/hr Documented by: Lactated Ringer's (Ringers, Lactated) 1,000 mls @ 125 mls/hr IV ASDIRECTED [facility] Last Infusion: 05/11/21 09:30 Dose: 0 mls/hr Documented by: Piperacillin Sod/Tazobactam (Sod 3.375 gm/ Sodium Chloride) 50 mls @ 100 mls/hr IV Q6H [facility] Last Admin: 05/11/21 18:14 Dose: 100 mls/hr Documented by: Norepinephrine Bitartrate (Norepinephr-0.9% Nacl 4 Mg/250) 4 mg in 250 mls @ 7.5 mls/hr IV TITRATE [facility]; Protocol Last Titration: 05/09/21 19:35 Dose: 0 mcg/min, 0 mls/hr Documented by: Acetaminophen 1,000 mg/ Premix 100 mls @ 400 mls/hr IV Q6H PRN PRN Reason: Pain Last Admin: 05/10/21 23:43 Dose: 400 mls/hr Documented by: Vancomycin HCl 1 gm/ Sodium (Chloride) 250 mls @ 167 mls/hr IV Q24H [facility] Vancomycin HCl 1 gm/ Sodium (Chloride) 250 mls @ 167 mls/hr IV Q24H [facility] Last Admin: 05/11/21 19:14 Dose: Not Given Documented by: Metronidazole 500 mg/ Premix 100 mls @ 100 mls/hr IV Q8H [facility] Last Admin: 05/11/21 18:48 Dose: 100 mls/hr Documented by: Ciprofloxacin/Dextrose 400 mg/ (Premix) 200 mls @ 200 mls/hr IV Q12HR [facility] Last Admin: 05/11/21 20:15 Dose: 200 mls/hr Documented by: Lactated Ringer's (Ringers, Lactated) 1,000 mls @ 125 mls/hr IV ASDIRECTED [facility] Last Admin: 05/11/21 20:19 Dose: 125 mls/hr Documented by: Iopamidol (Iopamidol 755 Mg/Ml 500 Ml Multipack Bottle) 80 ml IVPUSH ONETIME STA Stop: 05/09/21 03:22 Last Admin: 05/09/21 03:21 Dose: 80 ml Documented by: Iopamidol (Iopamidol 755 Mg/Ml 500 Ml Multipack Bottle) 100 ml IVPUSH ONETIME ONE Stop: 05/11/21 15:19 Last Admin: 05/11/21 15:19 Dose: 100 ml Documented by: Ketorolac Tromethamine (Ketorolac 30 Mg/Ml Sdv) 30 mg IVPUSH ONETIME ONE Stop: 05/09/21 05:30 Last Admin: 05/09/21 05:43 Dose: 30 mg Documented by: Losartan Potassium (Losartan 50 Mg Tab) 25 mg PO DAILY [facility] Last Admin: 05/09/21 13:51 Dose: Not Given Documented by: Morphine Sulfate (Morphine 4 Mg/Ml Syringe) 4 mg IVPUSH ONETIME ONE Stop: 05/09/21 10:54 Last Admin: 05/09/21 11:11 Dose: 4 mg Documented by: Morphine Sulfate (Morphine 2 Mg/Ml Syringe) 2 mg IVPUSH ONETIME ONE Stop: 05/09/21 14:51 Last Admin: 05/09/21 15:16 Dose: 2 mg Documented by: Morphine Sulfate (Morphine 2 Mg/Ml Syringe) 2 mg IVPUSH Q2H PRN PRN Reason: Pain Last Admin: 05/11/21 20:12 Dose: 2 mg Documented by: Ondansetron HCl (Ondansetron 4 Mg/2 Ml Sdv) 4 mg IVPUSH ONETIME ONE Stop: 05/09/21 02:55 Last Admin: 05/09/21 02:58 Dose: 4 mg Documented by: Ondansetron HCl (Ondansetron 4 Mg/2 Ml Sdv) Confirm Administered Dose 4 mg .ROUTE .STK-MED ONE Stop: 05/09/21 02:56 Last Admin: 05/09/21 02:58 Dose: Not Given Documented by: Ondansetron HCl (Ondansetron 4 Mg/2 Ml Sdv) 4 mg IVPUSH Q4H PRN PRN Reason: Nausea Last Admin: 05/11/21 15:38 Dose: 4 mg Documented by: Pantoprazole Sodium (Pantoprazole 40 Mg Tab.Cr) 40 mg PO DAILY [facility] Last Admin: 05/11/21 08:03 Dose: 40 mg Documented by: Vancomycin HCl (Pharmacy To Dose - Vancomycin) 1 dose .XX ASDIRECTED [facility]
[2021-05-11 21:07] VITALS: BP 127/73; PULSE 92
== END 2021-05-11 20:30 | DRG 720 ==
LOC: MW.ED 01:48 → MW.MS 05:07 → UNDOADMOB 05:37 → MW.MS 05:37 → OBSVTOIN 13:40 → MW.ICU 13:55 → MW.MS 05-11 15:39
PROVIDERS: ADMIT Internal Medicine; ATTEND Internal Medicine
PROC: 02HV33Z Insertion of Infusion Device into Superior Vena Cava, Percutaneous Approach (ICD-10-PCS; principal; 2021-05-09)
PROC: 3E043XZ Introduction of Vasopressor into Central Vein, Percutaneous Approach (ICD-10-PCS; 2021-05-09)
DX: A41.9 Sepsis, unspecified organism (principal); R65.21 Severe sepsis with septic shock; K57.20 Diverticulitis of large intestine with perforation and abscess without bleeding; J45.909 Unspecified asthma, uncomplicated; I10 Essential (primary) hypertension; Z20.822 Contact with and (suspected) exposure to COVID-19; K44.9 Diaphragmatic hernia without obstruction or gangrene; N17.9 Acute kidney failure, unspecified; Z88.5 Allergy status to narcotic agent; Q61.3 Polycystic kidney, unspecified; Z88.6 Allergy status to analgesic agent; Z79.899 Other long term (current) drug therapy; D64.9 Anemia, unspecified
CPT/HCPCS: 36415; 51701; 71045; 71045-26; 74177; 74177-26; 74178; 74178-26; 80053; 81003; 83605; 83690; 83735; 84100; 85025; 85610; 85730; 87040; 93005; 96365; 96375; 99285-25; A9270-GY; J0131; J0744; J1644; J1720; J1885; J2270; J2405; J2543; J3490; J7030; J7120; J7620-GY; Q9967; U0002